=== PATIENT | male | born 1980 | race African-American/Black ===

== ENCOUNTER 2017-12-31 10:04 | Inpatient (IN) | payer OTHER ==
[2017-12-31 10:42] VITALS: BMI 25.3
--- NOTE | 2017-12-31 11:14 | HP ---
CIWA Score - CIWA Score Nausea/Vomitin-No Nausea/No Vomiting Muscle Tremors: None Anxiety: 1-Mildly Anxious Agitation: 0-Normal Activity Paroxysmal Sweats: No Perspiration Orientation: 0-Oriented Tacttile Disturbances: 0-None Auditory Disturbances: 0-None Visual Disturbances: 1-Very Mild Sensitivity Headache: 0-None Present CIWA-Ar Total Score: 2 Admission ROS BHS - HPI Allergies/Adverse Reactions: Allergies Allergy/AdvReac Type Severity Reaction Status Date / Time Penicillins Allergy Severe Difficulty Verified 12/31/17 14:04 Breathing History of Present Illness: pt here requesting detox from etoh use , reports 2 cases of beer/day x 10 years , reports irritability if not drinking , + tremors , reports starts drinking in the mornings , not today - dany 0.000 - latest use 4 am today . cannabis : occasional cocaine : occasional pcp : occasional denies opiate use tobacco : occasional pmhx : bronchitis , anemia pshx : denies psych : denies , requesting to see psychiatry - Ebola screening Have you traveled outside of the country in the last 21 days: No Have you had contact with anyone from an Ebola affected area: No Have you been sick,other than usual withdrawal symptoms: No Do you have a fever: No - Review of Systems Constitutional: No Symptoms Reported EENT: reports: No Symptoms Reported, Other (denies) Respiratory: reports: No Symptoms reported Cardiac: reports: No Symptoms Reported GI: reports: No Symptoms Reported : reports: No Symptoms Reported Musculoskeletal: reports: No Symptoms Reported Integumentary: reports: No Symptoms Reported Neuro: reports: No Symptoms reported Hematology: reports: Anemia Psychiatric: reports: No Sypmtoms Reported, Judgement Intact, Orientated x3, other (reports depression related to mother on hospice care) Other Systems: Reviewed and Negative Patient History - Smoking Cessation Smoking history: Current some day smoker Have you smoked in the past 12 months: Yes Aproximately how many cigarettes per day: 2 Hx Chewing Tobacco Use: No Initiated information on smoking cessation: No - Substances Abused Cocaine Route: Inhalation Frequency: Daily Amount used: $50 Age of first use: 37 Date of Last Use: 12/30/17 Alcohol-beer/vodka Route: Oral Frequency: Daily Amount used: 2-6 pks./1 pt. Age of first use: 22 Date of Last Use: 12/31/17 Marijuana Route: Smoking Frequency: Daily Amount used: $20 Age of first use: 16 Date of Last Use: 12/30/17 Family Disease History - Family Disease History Family Disease History: Other: Father (d. aids ), Mother (liver cirrhosis, liver ca age 62), Sister (2 sisters a & W), Son (1 son a & W), Daughter (twins A & W ) Admission Physical Exam [facility] - Vital Signs Vital Signs: Vital Signs - 24 hr 12/31/17 10:40 Pulse Rate 95 H Respiratory 18 Rate Blood Pressure 129/79 - Physical General Appearance: Yes: No Apparent Distress, Nourished, Disheveled, Other ( evasive) HEENTM: Yes: Within Normal Limits, EOMI, Hearing grossly Normal, Normal ENT Inspection, Normocephalic, Normal Voice, OMER, Pharynx Normal Respiratory: Yes: Within Normal Limits, Chest Non-Tender, Lungs Clear, Normal Breath Sounds, No Respiratory Distress, No Accessory Muscle Use Neck: Yes: Within Normal Limits, No masses,lesions,Nodules, Trachea in good position Cardiology: Yes: Within Normal Limits, Regular Rhythm, Regular Rate Abdominal: Yes: Within Normal Limits, Normal Bowel Sounds, Non Tender, Flat, Soft Genitourinary: Yes: Within Normal Limits Back: Yes: Within Normal Limits, Normal Inspection Musculoskeletal: Yes: Within Normal Limits, full range of Motion, Gait Steady, Pelvis Stable Extremities: Yes: Within Normal Limits, Normal Capillary Refill, Normal Inspection, Normal Range of Motion, Non-Tender 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: Yes: Within Normal Limits, Fully Oriented, Alert, Motor Strength 5 /5, Normal Mood/Affect, Normal Response Integumentary: Yes: Normal Color, Dry, Warm - Diagnostic (1) Alcohol dependence Current Visit: Yes Status: Chronic Qualifiers: Substance use status: alcohol-induced anxiety disorder Qualified Code(s): 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
[2017-12-31] MEDS ORDERED: guaiFENesin/D-METHORPHAN HB 10 ML UNIT-DOSE CUPS PO PRN (11:20)
[2017-12-31] MEDS ORDERED: P-EPHED 60MG/TRIPROLIDI 2.5MG TABLET PO PRN (11:20)
[2017-12-31] MEDS ORDERED: ACETAMINOPHEN 325 MG TABLET (FP) PO PRN (11:20)
[2017-12-31] MEDS ORDERED: MAGNESIUM HYDROX 2400MG/30ML ORAL SUSPENSION 30 ML CUP PO PRN (11:20)
[2017-12-31] MEDS ORDERED: MAG HYDROX/AL HYDROX/SIMETH 30 ML UNIT-DOSE CUP PO PRN (11:20)
[2017-12-31] MEDS ORDERED: MAGNESIUM CITRATE 300 ML BOTTLE PO PRN (11:20)
[2017-12-31] MEDS ORDERED: IBUPROFEN 400 MG TABLET (FP) PO PRN (11:20)
[2017-12-31] MEDS ORDERED: diazePAM 5 MG TABLET PO PRN (11:20)
[2017-12-31] MEDS ORDERED: MENTHOL/PHENOL 1 EACH UD MM PRN (11:20)
[2017-12-31 18:15] LABS: URINE APPEARANCE CLEAR; URINE BILIRUBIN NEGATIVE (<2.0 mg/dL); URINE COLOR YELLOW; URINE GLUCOSE (UA) 1+ (NEGATIVE); URINE KETONE 1+ (NEGATIVE); URINE LEUK ESTERASE NEGATIVE (NEGATIVE); URINE NITRITE NEGATIVE (NEGATIVE); URINE PROTEIN NEGATIVE (NEGATIVE); URINE UROBILINOGEN NEGATIVE mg/dL (0.2-1.0)
[2017-12-31] MEDS ORDERED: MELATONIN 5 MG TABLETS PO PRN (22:00)
[2017-12-31] MEDS: THIAMINE HCL 100 MG TABLET (FP) PO SCH (22:11)
[2017-12-31] MEDS: diazePAM 5 MG TABLET PO SCH (22:11)
[2018-01-01] MEDS: diazePAM 5 MG TABLET PO SCH ×3 (05:02→22:11)
[2018-01-01] MEDS: PRENATAL VITAMINS W/ FOLIC ACID TABLET (FP) PO SCH (10:06)
[2018-01-01 10:49] LABS: HEMATOCRIT 45.2 % (35.4-49); HEMOGLOBIN 15.3 GM/dL (11.7-16.9); MCH 32.1 pg (25.7-33.7); MCHC 33.8 g/dl (32.0-35.9); MEAN CELL VOLUME 95.1 fl (80-96); MEAN PLT VOLUME 7.9 fl (7.5-11.1); PLATELET COUNT 254 K/MM3 (134-434); RBC 4.76 M/mm3 (4.00-5.60); RDW 13.1 % (11.9-15.9); WHITE BLOOD COUNT 5.7 K/mm3 (4.0-10.0)
[2018-01-01 11:15] LABS: ALK PHOS 106 U/L (45-117); ANION GAP 8 MMOL/L (8-16); BILIRUBIN,TOTAL 0.4 mg/dL (0.2-1); BLOOD UREA NITROGEN 15 mg/dL (7-18); CALCIUM 8.5 mg/dL (8.5-10.1); CHLORIDE 107 mmol/L (98-107); CO2 25 mmol/L (21-32); CREATININE 0.8 mg/dL (0.55-1.3); GLUCOSE,RANDOM 102 mg/dL (74-106); POTASSIUM 4.5 mmol/L (3.5-5.1); SGOT/AST 15 U/L (15-37); SGPT/ALT 21 U/L (13-61); SODIUM 140 mmol/L (136-145)
--- NOTE | 2018-01-01 12:53 | PN ---
S CIWA - CIWA Score Nausea/Vomitin Muscle Tremors: 2 Anxiety: 2 Agitation: 2 Paroxysmal Sweats: 1-Minimal Palms Moist Orientation: 0-Oriented Tacttile Disturbances: 1-Very Mild Itch/Numbness Auditory Disturbances: 1-Very Mild Visual Disturbances: 1-Very Mild Sensitivity Headache: 2-Mild CIWA-Ar Total Score: 14 S Progress Note (SOAP) Subjective: alert,irritable,anxious,interrupted sleep,tremor Objective: 01/01/18 12:50 Vital Signs Temperature 97.6 F 01/01/18 09:58 Pulse Rate 84 01/01/18 09:58 Respiratory Rate 16 01/01/18 09:58 Blood Pressure 124/72 01/01/18 09:58 O2 Sat by Pulse Oximetry (%) ekg nsr qt/qtc 378/464 Laboratory Last Values WBC 5.7 K/mm3 (4.0-10.0) 01/01/18 08:00 RBC 4.76 M/mm3 (4.00-5.60) 01/01/18 08:00 Hgb 15.3 GM/dL (11.7-16.9) 01/01/18 08:00 Hct 45.2 % (35.4-49) 01/01/18 08:00 MCV 95.1 fl (80-96) 01/01/18 08:00 MCH 32.1 pg (25.7-33.7) 01/01/18 08:00 MCHC 33.8 g/dl (32.0-35.9) 01/01/18 08:00 RDW 13.1 % (11.9-15.9) 01/01/18 08:00 Plt Count 254 K/MM3 (134-434) 01/01/18 08:00 MPV 7.9 fl (7.5-11.1) 01/01/18 08:00 Sodium 140 mmol/L (136-145) 01/01/18 08:00 Potassium 4.5 mmol/L (3.5-5.1) 01/01/18 08:00 Chloride 107 mmol/L (98-107) 01/01/18 08:00 Carbon Dioxide 25 mmol/L (21-32) 01/01/18 08:00 Anion Gap 8 MMOL/L (8-16) 01/01/18 08:00 BUN 15 mg/dL (7-18) 01/01/18 08:00 Creatinine 0.8 mg/dL (0.55-1.3) 01/01/18 08:00 Creat Clearance w eGFR > 60 (>60) 01/01/18 08:00 Random Glucose 102 mg/dL (74-106) 01/01/18 08:00 Calcium 8.5 mg/dL (8.5-10.1) 01/01/18 08:00 Total Bilirubin 0.4 mg/dL (0.2-1) 01/01/18 08:00 AST 15 U/L (15-37) 01/01/18 08:00 ALT 21 U/L (13-61) 01/01/18 08:00 Alkaline Phosphatase 106 U/L (45-117) 01/01/18 08:00 Total Protein 6.0 g/dl (6.4-8.2) L 01/01/18 08:00 Albumin 3.0 g/dl (3.4-5.0) L 01/01/18 08:00 Urine Color Yellow 12/31/17 17:00 Urine Appearance Clear 12/31/17 17:00 Urine pH 5.0 (5.0-8.0) 12/31/17 17:00 Ur Specific [place] 1.026 (1.010-1.035) 12/31/17 17:00 Urine Protein Negative (NEGATIVE) 12/31/17 17:00 Urine Glucose (UA) 1+ (NEGATIVE) H 12/31/17 17:00 Urine Ketones 1+ (NEGATIVE) H 12/31/17 17:00 Urine Blood Negative (NEGATIVE) 12/31/17 17:00 Urine Nitrite Negative (NEGATIVE) 12/31/17 17:00 Urine Bilirubin Negative (<2.0 mg/dL) 12/31/17 17:00 Urine Urobilinogen Negative mg/dL (0.2-1.0) 12/31/17 17:00 Ur Leukocyte Esterase Negative (NEGATIVE) 12/31/17 17:00 RPR Titer Nonreactive (NONREACTIVE) 01/01/18 08:00 Assessment: 01/01/18 12:52 withdrawal symptom Plan: continue detox
--- NOTE | 2018-01-01 17:10 | CONSULT ---
[facility] Psychiatric Consult - Data Date of interview: 01/01/18 Admission source: [facility] Identifying data: First admission to [facility] for this 37 y/o [place] ( [facility]) male seeking detoxification treatment on for alcohol, cannabis and cocaine dependence.Patient is ( left seven months ago ),a father of two,domiciled,unemployed and supported on Welfare. Substance Abuse History: Discussed with the patient in this bedside interview. Mr Turner admits to daily use of alcohol,marihuana and cocaine as reported in this [facility] document : Smoking history: Current some day smoker. Have you smoked in the past 12 months: Yes. Aproximately how many cigarettes per day: 2. Hx Chewing Tobacco Use: No. Initiated information on smoking cessation: No. - Substances Abused. Cocaine. Route: Inhalation. Frequency: Daily. Amount used: $50. Age of first use: 37. Date of Last Use: 12/30/17. Alcohol-beer/ vodka. Route: Oral. Frequency: Daily. Amount used: 2-6 pks./1 pt. Age of first use: 22. Date of Last Use: 12/31/17. Marijuana. Route: Smoking. Frequency: Daily. Amount used: $20. Age of first use: 16. Date of Last Use: 12/30/17 Medical History: Anemia. Otherwise, the patient endorses good general health. Psychiatric History: Patient denies history of psychiatric hospitalizations or suicide attempts. No prior contact with psychiatrists. Physical/Sexual Abuse/Trauma History: Identified stressors : terminal illness of biological mother (committed to a local hospice), separation from , financial difficulties, no fixed domicile, chronic unemployment, lack of vocational skills, addictions (alcohol,cocaine,cannabis) and absence of a support network. Mr Turner appears to be in good spirits and coping fairly well. Additional Comment: Urine Drug Screen Results: THC-Marijuana, ETTA-Cocaine.Noted. Mental Status Exam - Mental Status Exam Alert and Oriented to: Time, Place, Person Cognitive Function: Good Patient Appearance: Well Groomed Mood: Hopeful, Euthymic Affect: Appropriate, Normal Range Patient Behavior: Fatigued, Cooperative Speech Pattern: Clear, Appropriate Voice Loudness: Normal Thought Process: Goal Oriented Thought Disorder: Not Present Hallucinations: Denies Suicidal Ideation: Denies Homicidal Ideation: Denies Insight/Judgement: Poor Sleep: Well (as per self-report) Appetite: Good Muscle strength/Tone: Normal Gait/Station: Normal Psychiatric Findings - Problem List ([place] 1, 2,3) (1) Alcohol dependence with uncomplicated withdrawal Current Visit: Yes Status: Acute (2) Cocaine dependence Current Visit: Yes Status: Acute (3) Cannabis dependence Current Visit: Yes Status: Acute - Initial Treatment Plan Initial Treatment Plan: Psychoeducation.Sleep hygiene revisited.Patient is encouraged to engage in groups + recreational activities on the unit.Empathy/ support. Observation.
[2018-01-01] MEDS: THIAMINE HCL 100 MG TABLET (FP) PO SCH (22:11)
[2018-01-02 09:26] VITALS: BP 123/84; PULSE 77; TEMP 96.6
[2018-01-02] MEDS: PRENATAL VITAMINS W/ FOLIC ACID TABLET (FP) PO SCH (09:44)
[2018-01-02] MEDS ORDERED: diazePAM 5 MG TABLET PO SCH (10:00)
--- NOTE | 2018-01-02 11:49 | PN ---
[facility] CIWA - CIWA Score Nausea/Vomitin-Mild Nausea/No Vomiting Muscle Tremors: 2 Anxiety: 3 Agitation: 2 Paroxysmal Sweats: 3 Orientation: 0-Oriented Tacttile Disturbances: 0-None Auditory Disturbances: 0-None Visual Disturbances: 0-None Headache: 1-Very Mild CIWA-Ar Total Score: 12 [facility] Progress Note (SOAP) Subjective: Sweating, interrupted sleep Objective: 01/02/18 11:47 Last Vital Signs Temp Pulse Resp BP Pulse Ox 96.6 F L 77 20 123/84 01/02/18 09:26 01/02/18 09:26 01/02/18 09:26 01/02/18 09:26 Laboratory Tests 12/31/17 01/01/18 01/01/18 17:00 08:00 08:00 WBC 5.7 RBC 4.76 Hgb 15.3 Hct 45.2 MCV 95.1 MCH 32.1 MCHC 33.8 RDW 13.1 Plt Count 254 MPV 7.9 Sodium 140 Potassium 4.5 Chloride 107 Carbon Dioxide 25 Anion Gap 8 BUN 15 Creatinine 0.8 Creat Clearance w eGFR > 60 Random Glucose 102 Calcium 8.5 Total Bilirubin 0.4 AST 15 ALT 21 Alkaline Phosphatase 106 Total Protein 6.0 L Albumin 3.0 L Urine Color Yellow Urine Appearance Clear Urine pH 5.0 Ur Specific [place] 1.026 Urine Protein Negative Urine Glucose (UA) 1+ H Urine Ketones 1+ H Urine Blood Negative Urine Nitrite Negative Urine Bilirubin Negative Urine Urobilinogen Negative Ur Leukocyte Esterase Negative RPR Titer 01/01/18 08:00 WBC RBC Hgb Hct MCV MCH MCHC RDW Plt Count MPV Sodium Potassium Chloride Carbon Dioxide Anion Gap BUN Creatinine Creat Clearance w eGFR Random Glucose Calcium Total Bilirubin AST ALT Alkaline Phosphatase Total Protein Albumin Urine Color Urine Appearance Urine pH Ur Specific [place] Urine Protein Urine Glucose (UA) Urine Ketones Urine Blood Urine Nitrite Urine Bilirubin Urine Urobilinogen Ur Leukocyte Esterase RPR Titer Nonreactive Labs reviewed: UA 1+ glucose Assessment: 01/02/18 11:48 Withdrawal sxs Noted with glycosuria Plan: Continue detox Glycosuria: encouraged PO water intake, repeat UA
--- NOTE | 2018-01-02 13:07 | DS ---
[facility] Detox Discharge Summary Admission Date: 12/31/17 Discharge Date: 01/02/18 - History Present History: Alcohol Dependence, Cannabis Dependence, Cocaine Dependence Additional Comments: Patient decided to leave AMA stating his mother is in the hospital dying and is on life support and that she was just taken off the machine. Patient instructed to proceed to ER stat if withdrawal symptoms and to see his PCP within 3 days. Pertinent Past History: Denies - Physical Exam Results Vital Signs: Vital Signs Temperature 96.6 F L 01/02/18 09:26 Pulse Rate 77 01/02/18 09:26 Respiratory Rate 20 01/02/18 09:26 Blood Pressure 123/84 01/02/18 09:26 O2 Sat by Pulse Oximetry (%) Pertinent Admission Physical Exam Findings: Withdrawal sxs Laboratory Tests 12/31/17 01/01/18 01/01/18 17:00 08:00 08:00 WBC 5.7 RBC 4.76 Hgb 15.3 Hct 45.2 MCV 95.1 MCH 32.1 MCHC 33.8 RDW 13.1 Plt Count 254 MPV 7.9 Sodium 140 Potassium 4.5 Chloride 107 Carbon Dioxide 25 Anion Gap 8 BUN 15 Creatinine 0.8 Creat Clearance w eGFR > 60 Random Glucose 102 Calcium 8.5 Total Bilirubin 0.4 AST 15 ALT 21 Alkaline Phosphatase 106 Total Protein 6.0 L Albumin 3.0 L Urine Color Yellow Urine Appearance Clear Urine pH 5.0 Ur Specific [place] 1.026 Urine Protein Negative Urine Glucose (UA) 1+ H Urine Ketones 1+ H Urine Blood Negative Urine Nitrite Negative Urine Bilirubin Negative Urine Urobilinogen Negative Ur Leukocyte Esterase Negative RPR Titer 01/01/18 08:00 WBC RBC Hgb Hct MCV MCH MCHC RDW Plt Count MPV Sodium Potassium Chloride Carbon Dioxide Anion Gap BUN Creatinine Creat Clearance w eGFR Random Glucose Calcium Total Bilirubin AST ALT Alkaline Phosphatase Total Protein Albumin Urine Color Urine Appearance Urine pH Ur Specific [place] Urine Protein Urine Glucose (UA) Urine Ketones Urine Blood Urine Nitrite Urine Bilirubin Urine Urobilinogen Ur Leukocyte Esterase RPR Titer Nonreactive Labs reviewed: UA shows 1+ glucose (encouraged PO water intake and to repeat UA) - Medication Discharge Medications: Ambulatory Orders NK [No Known Home Medication] 12/31/17 - Diagnosis (1) Glycosuria with normal serum glucose Current Visit: Yes Status: Acute (2) Nicotine dependence Current Visit: Yes Status: Chronic (3) Alcohol dependence with uncomplicated withdrawal Current Visit: Yes Status: Acute (4) Cannabis dependence Current Visit: Yes Status: Chronic (5) Cocaine dependence Current Visit: Yes Status: Chronic - AMA Did Patient Leave Against Medical Advice: Yes (Proceed to ER stat if withdrawal sxs, F/U with PCP within 3 days)
[2018-01-04] MEDS ORDERED: diazePAM 5 MG TABLET PO SCH (10:00)
--- NOTE | 2018-01-04 13:18 | EKG ---
Test Reason : Blood Pressure : / mmHG Vent. Rate : 091 BPM Atrial Rate : 091 BPM P-R Int : 140 ms QRS Dur : 076 ms QT Int : 378 ms P-R-T Axes : 066 043 074 degrees QTc Int : 464 ms NORMAL SINUS RHYTHM NORMAL ECG NO PREVIOUS ECGS AVAILABLE Confirmed by MD STEPHANIE, ALVINA ([id number]) on 01/04/2018 1:18:12 PM Referred By: Confirmed By:ALVINA BROWN MD
== END 2018-01-02 13:25 | disposition left against medical advice (07) | DRG 770 ==
LOC: YASAS 10:04 → Y3N 14:44
PROC: HZ2ZZZZ Detoxification Services for Substance Abuse Treatment (ICD-10-PCS; principal; 2017-12-31)
DX: F10.230 Alcohol dependence with withdrawal, uncomplicated (principal); F14.20 Cocaine dependence, uncomplicated; F12.20 Cannabis dependence, uncomplicated; F17.210 Nicotine dependence, cigarettes, uncomplicated; R81 Glycosuria; Z86.2 Personal history of diseases of the blood and blood-forming organs and certain disorders involving the immune mechanism; Z88.0 Allergy status to penicillin
CPT/HCPCS: 36415; 80053; 81003; 85027; 86593; 93005; 93010

== ENCOUNTER 2018-04-02 08:26 | Inpatient (IN) | payer OTHER ==
[2018-04-02 09:03] VITALS: BMI 27.3
--- NOTE | 2018-04-02 09:32 | HP ---
CIWA Score Nausea/Vomitin Muscle Tremors: 4-Moderate,w/Arms Extend Anxiety: 4-Mod. Anxious/Guarded Agitation: 0-Normal Activity Paroxysmal Sweats: No Perspiration Orientation: 1-Uncertain about Date Tacttile Disturbances: 0-None Auditory Disturbances: 0-None Visual Disturbances: 0-None Headache: 2-Mild CIWA-Ar Total Score: 13 - Admission Criteria [facility] Guidelines: Admission for Medically Managed Detox: Requires at least one of the followin. CIWA greater than 12 2. Seizures within the past 24 hours 3. Delirium tremens within the past 24 hours 4. Hallucinations within the past 24 hours 5. Acute intervention needed for co occurring medical disorder 6. Acute intervention needed for co occurring psychiatric disorder 7. Severe withdrawal that cannot be handled at a lower level of care (continued vomiting, continued diarrhea, abnormal vital signs) requiring intravenous medication and/or fluids 8. Patient presents the following: CIWA greater than 12 Admission Criteria Met: Admission criteria met Admission ROS S - HPI Chief Complaint: It's ruining my life, I have to stop drinking. Allergies/Adverse Reactions: Allergies Allergy/AdvReac Type Severity Reaction Status Date / Time Penicillins Allergy Severe Difficulty Verified 04/02/18 09:59 Breathing shellfish derived Allergy Severe Difficulty Verified 04/02/18 09:59 Breathing History of Present Illness: 37 yo gentleman here for detox from alcohol - also using crack. Denies seizures but does have black outs. Drinks first thing in morning. Last here in December 31, 2017 but left after two days due to in family. Encouraged patient to complete detox and follow up with rehab. Exam Limitations: Clinical Condition - Ebola screening Have you traveled outside of the country in the last 21 days: No (N) Have you had contact with anyone from an Ebola affected area: No Have you been sick,other than usual withdrawal symptoms: No Do you have a fever: No - Review of Systems Constitutional: Loss of Appetite, Malaise, Changes in sleep EENT: reports: No Symptoms Reported Respiratory: reports: No Symptoms reported Cardiac: reports: No Symptoms Reported GI: reports: Nausea, Poor Appetite, Poor Fluid Intake, Indigestion, Abdominal cramping : reports: Frequency Musculoskeletal: reports: No Symptoms Reported Integumentary: reports: Dryness Neuro: reports: Headache, Tremors Endocrine: reports: No Symptoms Reported Hematology: reports: No Symptoms Reported Psychiatric: reports: Judgement Intact, Mood/Affect Appropiate, Anxious Other Systems: Reviewed and Negative Patient History - Patient Medical History Hx Asthma: Yes Hx Chronic Obstructive Pulmonary Disease (COPD): No Hx Cancer: No Hx Cardiac Disorders: No Hx Congestive Heart Failure: No Hx Hypertension: No Hx Hypercholesterolemia: No Hx Pacemaker: No HX Cerebrovascular Accident: No Hx Seizures: No Hx Diabetes: No Hx Gastrointestinal Disorders: No Hx Liver Disease: No Hx Genitourinary Disorders: No Hx Sexually Transmitted Disorders: No Hx Renal Disease (ESRD): No Hx Thyroid Disease: No Hx Human Immunodeficiency Virus (HIV): No Hx Hepatitis C: No Hx Depression: No Hx Suicide Attempt: No Hx Schizophrenia: No - Patient Surgical History Past Surgical History: No Hx Neurologic Surgery: No Hx Cataract Extraction: No Hx Cardiac Surgery: No Hx Lung Surgery: No Hx Breast Surgery: No Hx Breast Biopsy: No Hx Abdominal Surgery: No Hx Appendectomy: No Hx Cholecystectomy: No Hx Genitourinary Surgery: No Hx Section: No Hx Orthopedic Surgery: No Anesthesia Reaction: No - PPD History Previous Implant?: Yes Documented Results: Negative w/o proof Implanted On Prior R Admission?: Yes Date: 01/02/18 (never read) PPD to be Administered?: Yes - Reproductive History Patient is a Female of Child Bearing Age (11 -55 yrs old): No (male) - Smoking Cessation Smoking history: Current every day smoker Have you smoked in the past 12 months: Yes Aproximately how many cigarettes per day: 10 Hx Chewing Tobacco Use: No Initiated information on smoking cessation: Yes 'Breaking Loose' booklet given: 04/02/18 (give on floor) - Substance & Tx. History Hx Alcohol Use: Yes Hx Substance Use: Yes Substance Use Type: Alcohol, Cocaine, Marijuana Hx Substance Use Treatment: Yes (detox, rehab) - Substances Abused alcohol Route: Oral Frequency: Daily Amount used: 10 cans sixteen oz beer; Age of first use: 17 Date of Last Use: 04/01/18 cocaine Route: Inhalation Frequency: 1-2 times per week Amount used: $60 Age of first use: 22 Date of Last Use: 04/01/18 marijuana Route: Smoking Frequency: 1-2 times per week Amount used: $10 Age of first use: 22 Date of Last Use: 01/10/19 Family Disease History - Family Disease History Family Disease History: Other: Father (d. aids never met him), Mother ( , etoh, cirrhosis, liver cancer), Sister (2 sisters a & W), Son (1 son age 14 healthy), Daughter (twins age 10 , healthy) Admission Physical Exam [facility] - Vital Signs Vital Signs: Vital Signs - 24 hr 04/02/18 09:00 Temperature 97.5 F L Pulse Rate 88 Respiratory 20 Rate Blood Pressure 125/78 - Physical General Appearance: Yes: Nourished, Appropriately Dressed, Moderate Distress, Tremorous, Anxious HEENTM: Yes: EOMI, Hearing grossly Normal, Normocephalic, Normal Voice, Pharynx Normal Respiratory: Yes: Normal Breath Sounds, No Respiratory Distress Neck: Yes: No masses,lesions,Nodules, Supple Breast: Yes: Breast Exam Deferred Cardiology: Yes: Regular Rhythm, Regular Rate Abdominal: Yes: Flat Genitourinary: Yes: Frequency Back: Yes: Normal Inspection Musculoskeletal: Yes: full range of Motion, Gait Steady Extremities: Yes: Normal Inspection, Normal Range of Motion, Non-Tender 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: Yes: Alert, Motor Strength 5/5, Normal Mood/Affect, Normal Response Integumentary: Yes: Normal Color, Dry, Warm Lymphatic: Yes: Within Normal Limits - Diagnostic (1) Alcohol dependence with uncomplicated withdrawal Current Visit: Yes Status: Chronic (2) Cannabis dependence Current Visit: Yes Status: Chronic (3) Cocaine dependence Current Visit: Yes Status: Chronic Qualifiers: Substance use status: uncomplicated Qualified Code(s): F14.20 - Cocaine dependence, uncomplicated (4) Nicotine dependence Current Visit: Yes Status: Chronic Qualifiers: Nicotine product type: cigarettes Substance use status: uncomplicated Qualified Code(s): F17.210 - Nicotine dependence, cigarettes, uncomplicated (5) Asthma Current Visit: Yes Status: Acute Qualifiers: Asthma severity: mild Asthma persistence: intermittent Cleared for Admission S - Detox or Rehab [facility] Level of Care: Medically Managed Detox Regimen/Protocol: Librium S Breath Alcohol Content Breath Alcohol Content: 0 Urine Drug Screen - Results Drug Screen Negative: No Urine Drug Screen Results: THC-Marijuana, ETTA-Cocaine
--- NOTE | 2018-04-02 09:45 | HP ---
CIWA Score Nausea/Vomitin Muscle Tremors: 4-Moderate,w/Arms Extend Anxiety: 4-Mod. Anxious/Guarded Agitation: 0-Normal Activity Paroxysmal Sweats: No Perspiration Orientation: 1-Uncertain about Date Tacttile Disturbances: 0-None Auditory Disturbances: 0-None Visual Disturbances: 0-None Headache: 2-Mild CIWA-Ar Total Score: 13 - Admission Criteria OASAS Guidelines: Admission for Medically Managed Detox: Requires at least one of the followin. CIWA greater than 12 2. Seizures within the past 24 hours 3. Delirium tremens within the past 24 hours 4. Hallucinations within the past 24 hours 5. Acute intervention needed for co occurring medical disorder 6. Acute intervention needed for co occurring psychiatric disorder 7. Severe withdrawal that cannot be handled at a lower level of care (continued vomiting, continued diarrhea, abnormal vital signs) requiring intravenous medication and/or fluids 8. Patient presents the following: CIWA greater than 12 Admission Criteria Met: Admission criteria met Admission ROS BHS - HPI Chief Complaint: I'm ruining my life, I have to stop with the drinking and drugs. Allergies/Adverse Reactions: Allergies Allergy/AdvReac Type Severity Reaction Status Date / Time Penicillins Allergy Severe Difficulty Verified 12/31/17 14:04 Breathing History of Present Illness: 37 yo Exam Limitations: No Limitations - Ebola screening Have you traveled outside of the country in the last 21 days: No (N) Have you had contact with anyone from an Ebola affected area: No Have you been sick,other than usual withdrawal symptoms: No Do you have a fever: No Patient History - Patient Medical History Hx Asthma: Yes Hx Chronic Obstructive Pulmonary Disease (COPD): No Hx Cancer: No Hx Cardiac Disorders: No Hx Congestive Heart Failure: No Hx Hypertension: No Hx Hypercholesterolemia: No Hx Pacemaker: No HX Cerebrovascular Accident: No Hx Seizures: No Hx Diabetes: No Hx Gastrointestinal Disorders: No Hx Liver Disease: No Hx Genitourinary Disorders: No Hx Sexually Transmitted Disorders: No Hx Renal Disease (ESRD): No Hx Thyroid Disease: No Hx Human Immunodeficiency Virus (HIV): No Hx Hepatitis C: No Hx Depression: No Hx Suicide Attempt: No Hx Schizophrenia: No - Patient Surgical History Past Surgical History: No Hx Neurologic Surgery: No Hx Cataract Extraction: No Hx Cardiac Surgery: No Hx Lung Surgery: No Hx Breast Surgery: No Hx Breast Biopsy: No Hx Abdominal Surgery: No Hx Appendectomy: No Hx Cholecystectomy: No Hx Genitourinary Surgery: No Hx Section: No Hx Orthopedic Surgery: No Anesthesia Reaction: No - PPD History Previous Implant?: Yes Documented Results: Negative w/o proof Implanted On Prior [facility] Admission?: Yes Date: 01/02/18 (never read) - Smoking Cessation Smoking history: Current every day smoker Have you smoked in the past 12 months: Yes Aproximately how many cigarettes per day: 10 Hx Chewing Tobacco Use: No Initiated information on smoking cessation: Yes - Substances Abused alcohol Route: Oral Frequency: Daily Amount used: 10 cans sixteen oz beer; Age of first use: 17 Date of Last Use: 04/01/18 cocaine Route: Inhalation Frequency: 1-2 times per week Amount used: $60 Age of first use: 22 Date of Last Use: 04/01/18 marijuana Route: Smoking Frequency: 1-2 times per week Amount used: $10 Age of first use: 22 Date of Last Use: 03/31/18 Family Disease History - Family Disease History Family Disease History: Other: Father (d. aids never met him), Mother ( , etoh, cirrhosis, liver cancer), Sister (2 sisters a & W), Son (1 son age 14 healthy), Daughter (twins age 10 , healthy) Admission Physical Exam BHS - Vital Signs Vital Signs: Vital Signs - 24 hr 04/02/18 09:00 Temperature 97.5 F L Pulse Rate 88 Respiratory 20 Rate Blood Pressure 125/78 BHS Breath Alcohol Content Breath Alcohol Content: 0 Urine Drug Screen - Results Drug Screen Negative: No Urine Drug Screen Results: THC-Marijuana, ETTA-Cocaine
[2018-04-02] MEDS ORDERED: ACETAMINOPHEN 325 MG TABLET (FP) PO PRN (09:47)
[2018-04-02] MEDS ORDERED: P-EPHED 60MG/TRIPROLIDI 2.5MG TABLET PO PRN (09:47)
[2018-04-02] MEDS ORDERED: LOPERAMIDE HCL 2 MG CAPSULE PO PRN (09:47)
[2018-04-02] MEDS ORDERED: MAGNESIUM CITRATE 300 ML BOTTLE PO PRN (09:47)
[2018-04-02] MEDS ORDERED: guaiFENesin/D-METHORPHAN HB 10 ML UNIT-DOSE CUPS PO PRN (09:47)
[2018-04-02] MEDS ORDERED: MAGNESIUM HYDROX 2400MG/30ML ORAL SUSPENSION 30 ML CUP PO PRN (09:47)
[2018-04-02] MEDS ORDERED: chlordiazePOXIDE HCL 25 MG CAPSULE PO PRN (09:47)
[2018-04-02] MEDS ORDERED: NICOTINE POLACRILEX 4 MG GUM BUC PRN (09:47)
[2018-04-02] MEDS ORDERED: MAG HYDROX/AL HYDROX/SIMETH 30 ML UNIT-DOSE CUP PO PRN (09:47)
[2018-04-02] MEDS ORDERED: MENTHOL/PHENOL 1 EACH UD MM PRN (09:47)
[2018-04-02] MEDS ORDERED: IBUPROFEN 400 MG TABLET (FP) PO PRN (09:47)
[2018-04-02] MEDS ORDERED: ALBUTEROL SO4 8 GM HFA INHALER IH PRN (09:49)
[2018-04-02] MEDS: PRENATAL VITAMINS W/ FOLIC ACID TABLET (FP) PO SCH (12:15)
[2018-04-02] MEDS: chlordiazePOXIDE HCL 25 MG CAPSULE PO SCH ×3 (12:16→22:33)
[2018-04-02] MEDS: THIAMINE HCL 100 MG TABLET (FP) PO SCH (22:33)
[2018-04-02] MEDS: MELATONIN 5 MG TABLETS PO PRN (22:34)
[2018-04-03] MEDS: chlordiazePOXIDE HCL 25 MG CAPSULE PO SCH ×4 (05:44→22:59)
[2018-04-03] MEDS: PRENATAL VITAMINS W/ FOLIC ACID TABLET (FP) PO SCH (10:32)
--- NOTE | 2018-04-03 10:55 | PN ---
S CIWA - CIWA Score Nausea/Vomitin-Mild Nausea/No Vomiting Muscle Tremors: 3 Anxiety: 1-Mildly Anxious Agitation: 3 Paroxysmal Sweats: 1-Minimal Palms Moist Orientation: 1-Uncertain about Date Tacttile Disturbances: 0-None Auditory Disturbances: 0-None Visual Disturbances: 0-None Headache: 2-Mild CIWA-Ar Total Score: 12 BHS Progress Note (SOAP) Subjective: headaches tremor sweating restlessness Objective: 04/03/18 10:55 Vital Signs Temperature 97.7 F 04/03/18 09:52 Pulse Rate 91 H 04/03/18 09:52 Respiratory Rate 18 04/03/18 09:52 Blood Pressure 137/67 04/03/18 09:52 O2 Sat by Pulse Oximetry (%) 04/03/18 10:56 lab pending Assessment: 04/03/18 10:56 withdrawal sx Plan: continue detox
[2018-04-03 10:56] LABS: HEMATOCRIT 49.6 % (35.4-49); MCH 30.3 pg (25.7-33.7); MCHC 32.3 g/dl (32.0-35.9); MEAN CELL VOLUME 93.9 fl (80-96); MEAN PLT VOLUME 8.1 fl (7.5-11.1); PLATELET COUNT 305 K/MM3 (134-434); RBC 5.28 M/mm3 (4.00-5.60)
[2018-04-03 11:03] LABS: ALBUMIN 3.8 g/dl (3.4-5.0); ALK PHOS 98 U/L (45-117); ANION GAP 5 MMOL/L (8-16); BILIRUBIN,TOTAL 0.4 mg/dL (0.2-1); BLOOD UREA NITROGEN 14 mg/dL (7-18); CALCIUM 9.1 mg/dL (8.5-10.1); CHLORIDE 103 mmol/L (98-107); CO2 31 mmol/L (21-32); CREATININE 1.2 mg/dL (0.55-1.3); GLUCOSE,RANDOM 112 mg/dL (74-106); POTASSIUM 4.1 mmol/L (3.5-5.1); SGOT/AST 18 U/L (15-37); SGPT/ALT 38 U/L (13-61); SODIUM 138 mmol/L (136-145); TOT PROT 7.1 g/dl (6.4-8.2)
[2018-04-03] MEDS: MELATONIN 5 MG TABLETS PO PRN (22:58)
[2018-04-03] MEDS: THIAMINE HCL 100 MG TABLET (FP) PO SCH (22:59)
[2018-04-04] MEDS: chlordiazePOXIDE HCL 25 MG CAPSULE PO SCH (06:07)
[2018-04-04] MEDS: chlordiazePOXIDE 5 MG CAPSULE PO SCH ×3 (10:16→22:25)
[2018-04-04] MEDS: PRENATAL VITAMINS W/ FOLIC ACID TABLET (FP) PO SCH (10:16)
--- NOTE | 2018-04-04 10:41 | PN ---
S CIWA - CIWA Score Nausea/Vomitin-No Nausea/No Vomiting Muscle Tremors: 3 Anxiety: 3 Agitation: 3 Paroxysmal Sweats: 1-Minimal Palms Moist Orientation: 0-Oriented Tacttile Disturbances: 0-None Auditory Disturbances: 0-None Visual Disturbances: 0-None Headache: 0-None Present CIWA-Ar Total Score: 10 BHS Progress Note (SOAP) Subjective: agitation anxiety sweats interrupted sleep Objective: 04/04/18 10:40 Vital Signs Temperature 97.3 F L 04/04/18 09:30 Pulse Rate 86 04/04/18 09:30 Respiratory Rate 18 04/04/18 09:30 Blood Pressure 132/82 04/04/18 09:30 O2 Sat by Pulse Oximetry (%) Laboratory Tests 04/03/18 04/03/18 04/03/18 06:00 06:00 06:00 WBC 6.0 RBC 5.28 Hgb 16.0 Hct 49.6 H MCV 93.9 MCH 30.3 MCHC 32.3 RDW 13.0 Plt Count 305 D MPV 8.1 Sodium 138 Potassium 4.1 Chloride 103 Carbon Dioxide 31 Anion Gap 5 L BUN 14 Creatinine 1.2 Creat Clearance w eGFR > 60 Random Glucose 112 H Calcium 9.1 Total Bilirubin 0.4 AST 18 ALT 38 Alkaline Phosphatase 98 Total Protein 7.1 Albumin 3.8 RPR Titer HIV 1&2 Antibody Screen Negative HIV P24 Antigen Negative 04/03/18 06:00 WBC RBC Hgb Hct MCV MCH MCHC RDW Plt Count MPV Sodium Potassium Chloride Carbon Dioxide Anion Gap BUN Creatinine Creat Clearance w eGFR Random Glucose Calcium Total Bilirubin AST ALT Alkaline Phosphatase Total Protein Albumin RPR Titer Nonreactive HIV 1&2 Antibody Screen HIV P24 Antigen aaox3 ambulating no acute distress Assessment: 04/04/18 10:40 withdrawal sx Plan: continue detox increase fluids
[2018-04-04] MEDS: THIAMINE HCL 100 MG TABLET (FP) PO SCH (22:25)
[2018-04-04] MEDS: MELATONIN 5 MG TABLETS PO PRN (22:25)
[2018-04-05] MEDS: chlordiazePOXIDE 5 MG CAPSULE PO SCH (05:44)
[2018-04-05] MEDS: chlordiazePOXIDE HCL 10 MG CAPSULE PO SCH ×3 (10:44→22:03)
[2018-04-05] MEDS: PRENATAL VITAMINS W/ FOLIC ACID TABLET (FP) PO SCH (10:44)
--- NOTE | 2018-04-05 12:30 | PN ---
BHS Progress Note (SOAP) Subjective: sweats anxiety Objective: 04/05/18 12:29 Vital Signs Temperature 97.7 F 04/05/18 09:24 Pulse Rate 89 04/05/18 09:24 Respiratory Rate 18 04/05/18 09:24 Blood Pressure 129/65 04/05/18 09:24 O2 Sat by Pulse Oximetry (%) aaox3 ambulating no acute distress Assessment: 04/05/18 12:29 withdrawal sx Plan: increase fluids continue detox d/c in am
[2018-04-05 21:16] VITALS: TEMP 97.7
[2018-04-05] MEDS: THIAMINE HCL 100 MG TABLET (FP) PO SCH (22:03)
[2018-04-05] MEDS: MELATONIN 5 MG TABLETS PO PRN (22:03)
[2018-04-06] MEDS: chlordiazePOXIDE HCL 10 MG CAPSULE PO SCH (05:58)
[2018-04-06 07:34] VITALS: BP 110/66; PULSE 82
--- NOTE | 2018-04-06 08:36 | DS ---
[facility] Detox Discharge Summary Admission Date: 04/02/18 Discharge Date: 04/06/18 - History Present History: Alcohol Dependence, Cannabis Dependence, Cocaine Dependence - Physical Exam Results Vital Signs: Vital Signs Temperature 97.7 F 04/06/18 07:33 Pulse Rate 82 04/06/18 07:33 Respiratory Rate 18 04/06/18 07:33 Blood Pressure 110/66 04/06/18 07:33 O2 Sat by Pulse Oximetry (%) - Treatment Hospital Course: Detox Protocol Followed, Detoxed Safely, Responded well, Discharged Condition Good, Rehab Referral Accepted - Medication Discharge Medications: Ambulatory Orders Albuterol Sulfate Inhaler - [Ventolin Hfa Inhaler -] 2 inh PO Q4H PRN 04/02/18 - Diagnosis (1) Asthma Current Visit: Yes Status: Chronic Qualifiers: Asthma severity: mild Asthma persistence: intermittent (2) Alcohol dependence with uncomplicated withdrawal Current Visit: Yes Status: Chronic (3) Cannabis dependence Current Visit: Yes Status: Chronic (4) Cocaine dependence Current Visit: Yes Status: Chronic Qualifiers: Substance use status: uncomplicated Qualified Code(s): F14.20 - Cocaine dependence, uncomplicated (5) Nicotine dependence Current Visit: Yes Status: Chronic Qualifiers: Nicotine product type: cigarettes Substance use status: uncomplicated Qualified Code(s): F17.210 - Nicotine dependence, cigarettes, uncomplicated (6) Glycosuria with normal serum glucose Current Visit: No Status: Acute - AMA Did Patient Leave Against Medical Advice: No (going home)
== END 2018-04-06 08:55 | disposition home or self-care (01) | DRG 774 ==
LOC: YASAS 08:26 → Y6N 10:17
PROC: HZ2ZZZZ Detoxification Services for Substance Abuse Treatment (ICD-10-PCS; principal; 2018-04-02)
DX: F10.230 Alcohol dependence with withdrawal, uncomplicated (principal); F14.20 Cocaine dependence, uncomplicated; F12.20 Cannabis dependence, uncomplicated; F17.210 Nicotine dependence, cigarettes, uncomplicated; J45.20 Mild intermittent asthma, uncomplicated; R81 Glycosuria; Z88.0 Allergy status to penicillin; Z91.013 Allergy to seafood
CPT/HCPCS: 36415; 80053; 85027; 86593; 87389

== ENCOUNTER 2018-05-18 10:14 | Inpatient (IN) | payer OTHER ==
[2018-05-18 10:54] VITALS: BMI 26.3
--- NOTE | 2018-05-18 11:34 | HP ---
CIWA Score Nausea/Vomitin Muscle Tremors: 2 Anxiety: 2 Agitation: 2 Paroxysmal Sweats: 1-Minimal Palms Moist Orientation: 0-Oriented Tacttile Disturbances: 1-Very Mild Itch/Numbness Auditory Disturbances: 1-Very Mild Visual Disturbances: 0-None Headache: 2-Mild CIWA-Ar Total Score: 13 - Admission Criteria OASAS Guidelines: Admission for Medically Managed Detox: Requires at least one of the followin. CIWA greater than 12 2. Seizures within the past 24 hours 3. Delirium tremens within the past 24 hours 4. Hallucinations within the past 24 hours 5. Acute intervention needed for co occurring medical disorder 6. Acute intervention needed for co occurring psychiatric disorder 7. Severe withdrawal that cannot be handled at a lower level of care (continued vomiting, continued diarrhea, abnormal vital signs) requiring intravenous medication and/or fluids 8. Patient presents the following: CIWA greater than 12 Admission Criteria Met: Admission criteria met Admission ROS BHS - HPI Chief Complaint: i need help to stop drinking alcohol,cocaine and marijuana Allergies/Adverse Reactions: Allergies Allergy/AdvReac Type Severity Reaction Status Date / Time Penicillins Allergy Severe Difficulty Verified 05/18/18 11:11 Breathing shellfish derived Allergy Severe Difficulty Verified 05/18/18 11:11 Breathing History of Present Illness: this 37 years old male with alcohol,cocaine and marijuana dependence,seeking detox,withdrawal symptom, multiple admissions in detox but keep relapsing ambulation with cane,seen in [place] 3 days ago,had xray done,was told to be arthritis of right knee,ambulation with cane nicotine dependence 10 cigarette/day, weight loss longest sobriety 3 years plan to go to rehab after detox Exam Limitations: No Limitations - Ebola screening Have you traveled outside of the country in the last 21 days: No Have you had contact with anyone from an Ebola affected area: No Have you been sick,other than usual withdrawal symptoms: No - Review of Systems Constitutional: Loss of Appetite, Malaise, Night Sweats, Changes in sleep, Weakness, Unintentional Wgt. Loss EENT: reports: Nose Congestion Respiratory: reports: No Symptoms reported Cardiac: reports: No Symptoms Reported GI: reports: Nausea, Indigestion, Abdominal cramping : reports: No Symptoms Reported Musculoskeletal: reports: Back Pain, Joint Pain, Muscle Pain, Other (pain in right knee,arthritis,ambulation with cane) Integumentary: reports: Dryness Neuro: reports: Headache, Tremors Endocrine: reports: No Symptoms Reported Hematology: reports: No Symptoms Reported Psychiatric: reports: No Sypmtoms Reported, Judgement Intact, Mood/Affect Appropiate, Orientated x3 Other Systems: Reviewed and Negative Patient History - Patient Medical History Hx Anemia: No Hx Asthma: Yes (on albuterol inhaler) Hx Chronic Obstructive Pulmonary Disease (COPD): No Hx Cancer: No Hx Cardiac Disorders: No Hx Congestive Heart Failure: No Hx Hypertension: No Hx Hypercholesterolemia: No Hx Pacemaker: No HX Cerebrovascular Accident: No Hx Seizures: No Hx Diabetes: No Hx Gastrointestinal Disorders: No Hx Liver Disease: No Hx Genitourinary Disorders: No Hx Sexually Transmitted Disorders: No Hx Renal Disease (ESRD): No Hx Thyroid Disease: No Hx Human Immunodeficiency Virus (HIV): No (last 02/06 negative) Hx Hepatitis C: No Hx Depression: No Hx Suicide Attempt: No Hx Schizophrenia: No Other Medical History: no suicidal,no suicidal,cane ambulation for arthritis of right knee - Patient Surgical History Past Surgical History: No Hx Neurologic Surgery: No Hx Cataract Extraction: No Hx Cardiac Surgery: No Hx Lung Surgery: No Hx Breast Surgery: No Hx Breast Biopsy: No Hx Abdominal Surgery: No Hx Appendectomy: No Hx Cholecystectomy: No Hx Genitourinary Surgery: No Hx Section: No Hx Orthopedic Surgery: No Anesthesia Reaction: No - PPD History Previous Implant?: Yes Documented Results: Negative w/proof Implanted On Prior [facility] Admission?: Yes Date: 04/04/18 Results: 0 mm PPD to be Administered?: No - Smoking Cessation Smoking history: Current every day smoker Have you smoked in the past 12 months: Yes Aproximately how many cigarettes per day: 10 Hx Chewing Tobacco Use: No Initiated information on smoking cessation: Yes 'Breaking Loose' booklet given: 05/18/18 - Substance & Tx. History Hx Alcohol Use: Yes Hx Substance Use: Yes Substance Use Type: Alcohol, Cocaine, Marijuana Hx Substance Use Treatment: Yes ([facility] 04/02/18 to 04/06/18) - Substances Abused Cocaine Route: Inhalation Frequency: 3-6 times per week Amount used: $50 Age of first use: 21 Date of Last Use: 05/17/18 Alcohol-beer Route: Oral Frequency: Daily Amount used: 3-6 pks. Age of first use: 17 Date of Last Use: 05/18/18 Marijuana Route: Smoking Frequency: 1-2 times per week Amount used: $10 Age of first use: 21 Date of Last Use: 05/17/18 Family Disease History - Family Disease History Family Disease History: Other: Father (d. aids never met him), Mother ( , etoh, cirrhosis, liver cancer), Sister (2 sisters a & W), Son (1 son age 14 healthy), Daughter (twins age 10 , healthy) Admission Physical Exam [facility] - Vital Signs Vital Signs: Vital Signs - 24 hr 05/18/18 10:48 Temperature 96.6 F L Pulse Rate 90 Respiratory 18 Rate Blood Pressure 141/84 - Physical General Appearance: Yes: Moderate Distress, Tremorous, Irritable, Sweating, Anxious HEENTM: Yes: Normal ENT Inspection, OMER, Pharynx Normal Respiratory: Yes: Within Normal Limits, Lungs Clear, Normal Breath Sounds Neck: Yes: Within Normal Limits, Supple, Trachea in good position Breast: Yes: Within Normal Limits Cardiology: Yes: Within Normal Limits, Regular Rhythm, Regular Rate, S1, S2 Abdominal: Yes: Within Normal Limits, Normal Bowel Sounds, Non Tender, Flat, Soft Genitourinary: Yes: Within Normal Limits Back: Yes: Normal Inspection, Muscle Spasm Musculoskeletal: Yes: full range of Motion, Back pain, Muscle Pain, Other (pain in the right knee no trauma ambuation with cane seen at [place] 3 days ago,had x ray done) Extremities: Yes: Within Normal Limits, Normal Range of Motion, Tremors 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: 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: 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 intact, Fully Oriented, Alert, Motor Strength 5/5 Integumentary: Yes: Dry Lymphatic: Yes: Within Normal Limits - Diagnostic (1) Alcohol dependence with uncomplicated withdrawal Current Visit: No Status: Chronic (2) Asthma Current Visit: No Status: Chronic Qualifiers: Asthma severity: mild Asthma persistence: intermittent (3) Cannabis dependence Current Visit: No Status: Chronic (4) Cocaine dependence Current Visit: No Status: Chronic Qualifiers: Substance use status: uncomplicated Qualified Code(s): F14.20 - Cocaine dependence, uncomplicated (5) Nicotine dependence Current Visit: No Status: Chronic Qualifiers: Nicotine product type: cigarettes Substance use status: uncomplicated Qualified Code(s): F17.210 - Nicotine dependence, cigarettes, uncomplicated (6) Weight loss Current Visit: Yes Status: Acute (7) Arthritis of right knee Current Visit: Yes Status: Acute (8) Use of cane as ambulatory aid Current Visit: Yes Status: Acute Cleared for Admission [facility] - Detox or Rehab [facility] Level of Care: Medically Managed Detox Regimen/Protocol: Librium BHS Breath Alcohol Content Breath Alcohol Content: 0 Urine Drug Screen - Results Drug Screen Negative: No Urine Drug Screen Results: THC-Marijuana, ETTA-Cocaine, BZO-Benzodiazepines Inpatient Rehab Admission - Rehab Decision to Admit Inpatient rehab admission?: No
[2018-05-18] MEDS ORDERED: MAGNESIUM HYDROX 2400MG/30ML ORAL SUSPENSION 30 ML CUP PO PRN (11:44)
[2018-05-18] MEDS ORDERED: IBUPROFEN 400 MG TABLET (FP) PO PRN (11:44)
[2018-05-18] MEDS ORDERED: MAG HYDROX/AL HYDROX/SIMETH 30 ML UNIT-DOSE CUP PO PRN (11:44)
[2018-05-18] MEDS ORDERED: MAGNESIUM CITRATE 300 ML BOTTLE PO PRN (11:44)
[2018-05-18] MEDS ORDERED: MENTHOL/PHENOL 1 EACH UD MM PRN (11:44)
[2018-05-18] MEDS ORDERED: ACETAMINOPHEN 325 MG TABLET (FP) PO PRN (11:44)
[2018-05-18] MEDS ORDERED: P-EPHED 60MG/TRIPROLIDI 2.5MG TABLET PO PRN (11:44)
[2018-05-18] MEDS ORDERED: chlordiazePOXIDE HCL 25 MG CAPSULE PO PRN (11:44)
[2018-05-18] MEDS ORDERED: guaiFENesin/D-METHORPHAN HB 10 ML UNIT-DOSE CUPS PO PRN (11:44)
[2018-05-18] MEDS ORDERED: hydrOXYzine PAMOATE 50 MG CAPSULE (FP) PO PRN (11:44)
[2018-05-18] MEDS ORDERED: LOPERAMIDE HCL 2 MG CAPSULE PO PRN (11:44)
[2018-05-18] MEDS: chlordiazePOXIDE HCL 25 MG CAPSULE PO SCH ×2 (17:55→22:20)
[2018-05-18] MEDS: THIAMINE HCL 100 MG TABLET (FP) PO SCH (22:20)
[2018-05-18] MEDS: MELATONIN 5 MG TABLETS PO PRN (22:21)
[2018-05-18 23:22] LABS: URINE APPEARANCE SLCLOUDY; URINE BILIRUBIN NEGATIVE (<2.0 mg/dL); URINE COLOR YELLOW; URINE GLUCOSE (UA) NEGATIVE (NEGATIVE); URINE KETONE 1+ (NEGATIVE); URINE LEUK ESTERASE TRACE (NEGATIVE); URINE NITRITE NEGATIVE (NEGATIVE); URINE PROTEIN NEGATIVE (NEGATIVE); URINE UROBILINOGEN NEGATIVE mg/dL (0.2-1.0)
[2018-05-18 23:27] LABS: EPI CELLS RARE /HPF (FEW); URINE MUCUS FEW
[2018-05-19] MEDS: chlordiazePOXIDE HCL 25 MG CAPSULE PO SCH ×4 (05:27→22:05)
--- NOTE | 2018-05-19 10:13 | PN ---
S CIWA - CIWA Score Nausea/Vomitin-No Nausea/No Vomiting Muscle Tremors: 2 Anxiety: 3 Agitation: 2 Paroxysmal Sweats: 1-Minimal Palms Moist Orientation: 1-Uncertain about Date Tacttile Disturbances: 0-None Auditory Disturbances: 0-None Visual Disturbances: 0-None Headache: 1-Very Mild CIWA-Ar Total Score: 10 S Progress Note (SOAP) Subjective: tremor sweating low energy restlessness ambulate with cane on hallway steady gait Objective: 05/19/18 10:18 Vital Signs Temperature 97.2 F L 05/19/18 09:13 Pulse Rate 65 05/19/18 09:13 Respiratory Rate 16 05/19/18 09:13 Blood Pressure 108/62 05/19/18 09:13 O2 Sat by Pulse Oximetry (%) Laboratory Last Values Urine Color Yellow 05/18/18 21:00 Urine Appearance Slcloudy 05/18/18 21:00 Urine pH 5.0 (5.0-8.0) 05/18/18 21:00 Ur Specific [place] 1.019 (1.010-1.035) 05/18/18 21:00 Urine Protein Negative (NEGATIVE) 05/18/18 21:00 Urine Glucose (UA) Negative (NEGATIVE) 05/18/18 21:00 Urine Ketones 1+ (NEGATIVE) H 05/18/18 21:00 Urine Blood Negative (NEGATIVE) 05/18/18 21:00 Urine Nitrite Negative (NEGATIVE) 05/18/18 21:00 Urine Bilirubin Negative (<2.0 mg/dL) 05/18/18 21:00 Urine Urobilinogen Negative mg/dL (0.2-1.0) 05/18/18 21:00 Ur Leukocyte Esterase Trace (NEGATIVE) 05/18/18 21:00 Urine WBC (Auto) 4 /hpf (3-5) 05/18/18 21:00 Urine RBC (Auto) <1 /hpf (0-3) 05/18/18 21:00 Ur Epithelial Cells Rare /HPF (FEW) 05/18/18 21:00 Urine Mucus Few 05/18/18 21:00 lab noted Assessment: 05/19/18 10:18 alcohol withdrawal sx Plan: continue detox
[2018-05-19] MEDS: PRENATAL VITAMINS W/ FOLIC ACID TABLET (FP) PO SCH (10:28)
[2018-05-19 10:55] LABS: HEMATOCRIT 46.7 % (35.4-49); HEMOGLOBIN 15.9 GM/dL (11.7-16.9); MCH 32.4 pg (25.7-33.7); MCHC 34.2 g/dl (32.0-35.9); MEAN CELL VOLUME 94.8 fl (80-96); MEAN PLT VOLUME 8.4 fl (7.5-11.1); PLATELET COUNT 312 K/MM3 (134-434); RBC 4.92 M/mm3 (4.00-5.60); RDW 14.8 % (11.9-15.9); WHITE BLOOD COUNT 8.6 K/mm3 (4.0-10.0)
[2018-05-19 11:09] LABS: ALK PHOS 124 U/L (45-117); ANION GAP 5 MMOL/L (8-16); BILIRUBIN,TOTAL 0.6 mg/dL (0.2-1); BLOOD UREA NITROGEN 13 mg/dL (7-18); CHLORIDE 102 mmol/L (98-107); CO2 31 mmol/L (21-32); CREATININE 1.2 mg/dL (0.55-1.3); GLUCOSE,RANDOM 104 mg/dL (74-106); POTASSIUM 3.9 mmol/L (3.5-5.1); SGOT/AST 17 U/L (15-37); SGPT/ALT 24 U/L (13-61); SODIUM 138 mmol/L (136-145); TOT PROT 7.3 g/dl (6.4-8.2)
[2018-05-19] MEDS: MELATONIN 5 MG TABLETS PO PRN (22:05)
[2018-05-19] MEDS: THIAMINE HCL 100 MG TABLET (FP) PO SCH (22:05)
[2018-05-20] MEDS: chlordiazePOXIDE HCL 25 MG CAPSULE PO SCH ×2 (05:45→10:19)
[2018-05-20] MEDS: PRENATAL VITAMINS W/ FOLIC ACID TABLET (FP) PO SCH (10:19)
--- NOTE | 2018-05-20 16:44 | PN ---
[facility] CIWA - CIWA Score Nausea/Vomitin-No Nausea/No Vomiting Muscle Tremors: 3 Anxiety: 2 Agitation: 0-Normal Activity Paroxysmal Sweats: 3 Orientation: 0-Oriented Tacttile Disturbances: 2-Mild Itch/Numbness/Burn Auditory Disturbances: 0-None Visual Disturbances: 1-Very Mild Sensitivity Headache: 0-None Present CIWA-Ar Total Score: 11 BHS Progress Note (SOAP) Subjective: Fatigue, Tremors, Sweating, Anxious. Objective: PATIENT A & O X 3, OBSERVED AMBULATING ON UNIT. IN NO ACUTE DISTRESS. 05/20/18 16:45 Vital Signs Temperature 97.9 F 05/20/18 13:38 Pulse Rate 98 H 05/20/18 13:38 Respiratory Rate 18 05/20/18 13:38 Blood Pressure 137/88 05/20/18 13:38 O2 Sat by Pulse Oximetry (%) Laboratory Tests 05/18/18 05/19/18 05/19/18 21:00 06:00 06:00 WBC 8.6 RBC 4.92 Hgb 15.9 Hct 46.7 MCV 94.8 MCH 32.4 MCHC 34.2 RDW 14.8 D Plt Count 312 MPV 8.4 Sodium 138 Potassium 3.9 Chloride 102 Carbon Dioxide 31 Anion Gap 5 L BUN 13 Creatinine 1.2 Creat Clearance w eGFR > 60 Random Glucose 104 Calcium 9.0 Total Bilirubin 0.6 AST 17 ALT 24 Alkaline Phosphatase 124 H Total Protein 7.3 Albumin 4.0 Urine Color Yellow Urine Appearance Slcloudy Urine pH 5.0 Ur Specific [place] 1.019 Urine Protein Negative Urine Glucose (UA) Negative Urine Ketones 1+ H Urine Blood Negative Urine Nitrite Negative Urine Bilirubin Negative Urine Urobilinogen Negative Ur Leukocyte Esterase Trace Urine WBC (Auto) 4 Urine RBC (Auto) <1 Ur Epithelial Cells Rare Urine Mucus Few RPR Titer 05/19/18 06:00 WBC RBC Hgb Hct MCV MCH MCHC RDW Plt Count MPV Sodium Potassium Chloride Carbon Dioxide Anion Gap BUN Creatinine Creat Clearance w eGFR Random Glucose Calcium Total Bilirubin AST ALT Alkaline Phosphatase Total Protein Albumin Urine Color Urine Appearance Urine pH Ur Specific [place] Urine Protein Urine Glucose (UA) Urine Ketones Urine Blood Urine Nitrite Urine Bilirubin Urine Urobilinogen Ur Leukocyte Esterase Urine WBC (Auto) Urine RBC (Auto) Ur Epithelial Cells Urine Mucus RPR Titer Nonreactive LABS NOTED. Assessment: 05/20/18 16:45 WITHDRAWAL SYMPTOMS. Plan: CONTINUE DETOX.
[2018-05-20] MEDS: chlordiazePOXIDE 5 MG CAPSULE PO SCH ×2 (17:07→22:18)
[2018-05-20] MEDS: THIAMINE HCL 100 MG TABLET (FP) PO SCH (22:18)
[2018-05-20] MEDS: MELATONIN 5 MG TABLETS PO PRN (22:19)
[2018-05-20] MEDS: ALBUTEROL SO4 8 GM HFA INHALER IH PRN (22:20)
[2018-05-21] MEDS: chlordiazePOXIDE 5 MG CAPSULE PO SCH ×2 (06:07→10:43)
[2018-05-21] MEDS: ALBUTEROL SO4 8 GM HFA INHALER IH PRN ×2 (06:09→10:57)
[2018-05-21 09:27] VITALS: BP 106/65; PULSE 80; TEMP 97.3
[2018-05-21] MEDS: PRENATAL VITAMINS W/ FOLIC ACID TABLET (FP) PO SCH (10:43)
--- NOTE | 2018-05-21 13:03 | PN ---
BHS Progress Note (SOAP) Subjective: Patient denies current Withdrawal / Detox symptoms and reports that he feels well overall. Objective: PATIENT A & O X 3, OBSERVED AMBULATING ON UNIT. IN NO ACUTE DISTRESS. 05/21/18 12:56 Vital Signs Temperature 97.3 F L 05/21/18 09:26 Pulse Rate 80 05/21/18 09:26 Respiratory Rate 16 05/21/18 09:26 Blood Pressure 106/65 05/21/18 09:26 O2 Sat by Pulse Oximetry (%) Laboratory Tests 05/18/18 05/19/18 05/19/18 21:00 06:00 06:00 WBC 8.6 RBC 4.92 Hgb 15.9 Hct 46.7 MCV 94.8 MCH 32.4 MCHC 34.2 RDW 14.8 D Plt Count 312 MPV 8.4 Sodium 138 Potassium 3.9 Chloride 102 Carbon Dioxide 31 Anion Gap 5 L BUN 13 Creatinine 1.2 Creat Clearance w eGFR > 60 Random Glucose 104 Calcium 9.0 Total Bilirubin 0.6 AST 17 ALT 24 Alkaline Phosphatase 124 H Total Protein 7.3 Albumin 4.0 Urine Color Yellow Urine Appearance Slcloudy Urine pH 5.0 Ur Specific [place] 1.019 Urine Protein Negative Urine Glucose (UA) Negative Urine Ketones 1+ H Urine Blood Negative Urine Nitrite Negative Urine Bilirubin Negative Urine Urobilinogen Negative Ur Leukocyte Esterase Trace Urine WBC (Auto) 4 Urine RBC (Auto) <1 Ur Epithelial Cells Rare Urine Mucus Few RPR Titer 05/19/18 06:00 WBC RBC Hgb Hct MCV MCH MCHC RDW Plt Count MPV Sodium Potassium Chloride Carbon Dioxide Anion Gap BUN Creatinine Creat Clearance w eGFR Random Glucose Calcium Total Bilirubin AST ALT Alkaline Phosphatase Total Protein Albumin Urine Color Urine Appearance Urine pH Ur Specific [place] Urine Protein Urine Glucose (UA) Urine Ketones Urine Blood Urine Nitrite Urine Bilirubin Urine Urobilinogen Ur Leukocyte Esterase Urine WBC (Auto) Urine RBC (Auto) Ur Epithelial Cells Urine Mucus RPR Titer Nonreactive LABS NOTED. Assessment: 05/21/18 12:57 COMPLETION OF DETOX REGIMEN. Plan: SINCE PATIENT DENIES CURRENT WITHDRAWAL / DETOX SYMPTOMS AND REPORTS THAT HE FEELS WELL OVERALL, PATIENT GRANTED AN EARLY DISCHARGE FROM DETOX UNIT SO THAT HE MAY PROCEED ON TO AFTERCARE PLAN.
--- NOTE | 2018-05-21 13:09 | DS ---
[facility] Detox Discharge Summary Admission Date: 05/18/18 Discharge Date: 05/21/18 - History Present History: Alcohol Dependence, Cannabis Dependence, Cocaine Dependence Additional Comments: PATIENT DENIES CURRENT WITHDRAWAL SYMPTOMS AND REPORTS THAT HE FEELS WELL OVERALL AT TIME OF DISCHARGE FROM DETOX UNIT. PATIENT GOING ON TO [facility] ([place], [place]) FOR AFTERCARE. PATIENT WAS DISCHARGED FROM DETOX UNIT IN STABLE MEDICAL CONDITION. Pertinent Past History: Nicotine Dependence, Use Of Cane As Ambulatory Aid, Weight Loss, Arthritis of Right Knee, Asthma. - Physical Exam Results Vital Signs: Vital Signs Temperature 97.3 F L 05/21/18 09:26 Pulse Rate 80 05/21/18 09:26 Respiratory Rate 16 05/21/18 09:26 Blood Pressure 106/65 05/21/18 09:26 O2 Sat by Pulse Oximetry (%) Pertinent Admission Physical Exam Findings: WITHDRAWAL SYMPTOMS. Laboratory Tests 05/18/18 05/19/18 05/19/18 21:00 06:00 06:00 WBC 8.6 RBC 4.92 Hgb 15.9 Hct 46.7 MCV 94.8 MCH 32.4 MCHC 34.2 RDW 14.8 D Plt Count 312 MPV 8.4 Sodium 138 Potassium 3.9 Chloride 102 Carbon Dioxide 31 Anion Gap 5 L BUN 13 Creatinine 1.2 Creat Clearance w eGFR > 60 Random Glucose 104 Calcium 9.0 Total Bilirubin 0.6 AST 17 ALT 24 Alkaline Phosphatase 124 H Total Protein 7.3 Albumin 4.0 Urine Color Yellow Urine Appearance Slcloudy Urine pH 5.0 Ur Specific [place] 1.019 Urine Protein Negative Urine Glucose (UA) Negative Urine Ketones 1+ H Urine Blood Negative Urine Nitrite Negative Urine Bilirubin Negative Urine Urobilinogen Negative Ur Leukocyte Esterase Trace Urine WBC (Auto) 4 Urine RBC (Auto) <1 Ur Epithelial Cells Rare Urine Mucus Few RPR Titer 05/19/18 06:00 WBC RBC Hgb Hct MCV MCH MCHC RDW Plt Count MPV Sodium Potassium Chloride Carbon Dioxide Anion Gap BUN Creatinine Creat Clearance w eGFR Random Glucose Calcium Total Bilirubin AST ALT Alkaline Phosphatase Total Protein Albumin Urine Color Urine Appearance Urine pH Ur Specific [place] Urine Protein Urine Glucose (UA) Urine Ketones Urine Blood Urine Nitrite Urine Bilirubin Urine Urobilinogen Ur Leukocyte Esterase Urine WBC (Auto) Urine RBC (Auto) Ur Epithelial Cells Urine Mucus RPR Titer Nonreactive LABS NOTED. - Treatment Hospital Course: Detox Protocol Followed, Detoxed Safely, Responded well, Discharged Condition Good Patient has Accepted a Rehab Referral to: PATIENT GOING TO [facility] ([place], [place]). - Medication Discharge Medications: Ambulatory Orders Albuterol Sulfate Inhaler - [Ventolin Hfa Inhaler -] 2 inh PO Q4H PRN #1 inhaler 05/21/18 - Diagnosis (1) Arthritis of right knee Status: Acute (2) Use of cane as ambulatory aid Status: Chronic (3) Weight loss Status: Acute (4) Alcohol dependence with uncomplicated withdrawal Status: Chronic (5) Asthma Status: Chronic Qualifiers: Asthma severity: mild Asthma persistence: intermittent Asthma complication type: uncomplicated Qualified Code(s): J45.20 - Mild intermittent asthma, uncomplicated (6) Cannabis dependence Status: Chronic (7) Cocaine dependence Status: Chronic Qualifiers: Substance use status: uncomplicated Qualified Code(s): F14.20 - Cocaine dependence, uncomplicated (8) Nicotine dependence Status: Chronic Qualifiers: Nicotine product type: cigarettes Substance use status: uncomplicated Qualified Code(s): F17.210 - Nicotine dependence, cigarettes, uncomplicated - AMA Did Patient Leave Against Medical Advice: No
[2018-05-21] MEDS ORDERED: chlordiazePOXIDE HCL 10 MG CAPSULE PO SCH (17:00)
== END 2018-05-21 12:30 | disposition home or self-care (01) | DRG 774 ==
LOC: YASAS 10:14 → Y3N 11:35
PROVIDERS: ADMIT Surgery; ATTEND Surgery
PROC: HZ2ZZZZ Detoxification Services for Substance Abuse Treatment (ICD-10-PCS; principal; 2018-05-18)
DX: F10.230 Alcohol dependence with withdrawal, uncomplicated (principal); F14.20 Cocaine dependence, uncomplicated; F12.20 Cannabis dependence, uncomplicated; F17.210 Nicotine dependence, cigarettes, uncomplicated; J45.20 Mild intermittent asthma, uncomplicated; M13.861 Other specified arthritis, right knee; R26.2 Difficulty in walking, not elsewhere classified; Z99.89 Dependence on other enabling machines and devices; Z88.0 Allergy status to penicillin; Z91.013 Allergy to seafood
CPT/HCPCS: 36415; 80053; 81003; 81015; 85027; 86593

== ENCOUNTER 2018-07-04 10:19 | Inpatient (IN) | payer OTHER ==
[2018-07-04 10:45] VITALS: BMI 25.5
--- NOTE | 2018-07-04 11:08 | HP ---
CIWA Score Nausea/Vomitin Muscle Tremors: 2 Anxiety: 2 Agitation: 2 Paroxysmal Sweats: 1-Minimal Palms Moist Orientation: 0-Oriented Tacttile Disturbances: 1-Very Mild Itch/Numbness Auditory Disturbances: 1-Very Mild Visual Disturbances: 0-None Headache: 2-Mild CIWA-Ar Total Score: 13 - Admission Criteria OASAS Guidelines: Admission for Medically Managed Detox: Requires at least one of the followin. CIWA greater than 12 2. Seizures within the past 24 hours 3. Delirium tremens within the past 24 hours 4. Hallucinations within the past 24 hours 5. Acute intervention needed for co occurring medical disorder 6. Acute intervention needed for co occurring psychiatric disorder 7. Severe withdrawal that cannot be handled at a lower level of care (continued vomiting, continued diarrhea, abnormal vital signs) requiring intravenous medication and/or fluids 8. Admission ROS [facility] - HPI Chief Complaint: i need help to stop drinking alcohol,cocaine and marijuana Allergies/Adverse Reactions: Allergies Allergy/AdvReac Type Severity Reaction Status Date / Time Penicillins Allergy Severe Difficulty Verified 07/04/18 10:37 Breathing shellfish derived Allergy Severe Difficulty Verified 07/04/18 10:37 Breathing History of Present Illness: this 37 years old male with alcohol and cocaine and marijuana dependence, seeking detox,withdrawal symptom, multiple admissions to detox ,last detox 05/18/18 to 05/21/18 keep relapsing weight loss nicotine dependence 1/2 pack/day,do not want nicotine replacement plan to go to rehab after detox fx of left clavicle 3 [facility] of [facility] rib 3 [facility] asthma on albuterol inhaler Exam Limitations: No Limitations - Ebola screening Have you traveled outside of the country in the last 21 days: No Have you had contact with anyone from an Ebola affected area: No - Review of Systems Constitutional: Loss of Appetite, Malaise, Night Sweats, Changes in sleep, Unintentional Wgt. Loss EENT: reports: Nose Congestion Respiratory: reports: No Symptoms reported Cardiac: reports: No Symptoms Reported GI: reports: Nausea, Poor Appetite, Vomiting, Indigestion : reports: No Symptoms Reported Musculoskeletal: reports: Back Pain, Muscle Pain Integumentary: reports: Dryness Neuro: reports: Headache, Tremors Endocrine: reports: No Symptoms Reported Hematology: reports: No Symptoms Reported Psychiatric: reports: No Sypmtoms Reported, Judgement Intact, Mood/Affect Appropiate, Orientated x3 Other Systems: Reviewed and Negative Patient History - Patient Medical History Hx Anemia: No Hx Asthma: Yes (on albuterol inhaler) Hx Chronic Obstructive Pulmonary Disease (COPD): No Hx Cancer: No Hx Cardiac Disorders: No Hx Congestive Heart Failure: No Hx Hypertension: No Hx Hypercholesterolemia: No Hx Pacemaker: No HX Cerebrovascular Accident: No Hx Seizures: No Hx Dementia: No Hx Diabetes: No Hx Gastrointestinal Disorders: No Hx Liver Disease: No Hx Genitourinary Disorders: No Hx Sexually Transmitted Disorders: No Hx Renal Disease (ESRD): No Hx Thyroid Disease: No Hx Human Immunodeficiency Virus (HIV): No (last 04/09 negative) Hx Hepatitis C: No Hx Depression: No Hx Suicide Attempt: No Hx Bipolar Disorder: No Hx Schizophrenia: No Other Medical History: no suicidal,no homicidal,fx left clavicle and right rib 3 weeks ago - Patient Surgical History Past Surgical History: No Hx Neurologic Surgery: No Hx Cataract Extraction: No Hx Cardiac Surgery: No Hx Lung Surgery: No Hx Breast Surgery: No Hx Breast Biopsy: No Hx Abdominal Surgery: No Hx Appendectomy: No Hx Cholecystectomy: No Hx Genitourinary Surgery: No Hx Section: No Hx Orthopedic Surgery: No Anesthesia Reaction: No - PPD History Previous Implant?: Yes Documented Results: Negative w/proof Date: 04/04/18 Results: 0 mm PPD to be Administered?: No - Smoking Cessation Smoking history: Current every day smoker Have you smoked in the past 12 months: Yes Aproximately how many cigarettes per day: 10 Hx Chewing Tobacco Use: No Initiated information on smoking cessation: Yes 'Breaking Loose' booklet given: 07/04/18 - Substances abused Alcohol Substance route: Oral Frequency: Daily Amount used: 20 cans beers ( 16 oz), Age of first use: 14 Date of last use: 07/03/18 Marijuana/Hashish Substance route: Smoking Frequency: 1-2 times per week Amount used: 1 bag Age of first use: 22 Date of last use: 07/02/18 Cocaine Substance route: Inhalation Frequency: 3-6 times per week Amount used: $50 Age of first use: 22 Date of last use: 07/03/18 Family Disease History - Family Disease History Family Disease History: Other: Father (d. aids never met him), Mother ( , etoh, cirrhosis, liver cancer), Sister (2 sisters a & W), Son (1 son age 14 healthy), Daughter (twins age 10 , healthy) Admission Physical Exam S - Vital Signs Vital Signs: Vital Signs - 24 hr 07/04/18 10:27 Temperature 98.1 F Pulse Rate 72 Respiratory 18 Rate Blood Pressure 120/65 - Physical General Appearance: Yes: Moderate Distress, Tremorous, Irritable, Sweating, Anxious HEENTM: Yes: Normal ENT Inspection, OMER, Pharynx Normal Respiratory: Yes: Lungs Clear, Normal Breath Sounds, No Respiratory Distress, Other (fx of right rib fx of left clavicle deformity of left clavicle) Neck: Yes: Within Normal Limits, Supple, Trachea in good position Breast: Yes: Within Normal Limits Cardiology: Yes: Within Normal Limits, Regular Rhythm, Regular Rate, S1, S2 Abdominal: Yes: Within Normal Limits, Normal Bowel Sounds, Non Tender, Flat, Soft Genitourinary: Yes: Within Normal Limits Back: Yes: Muscle Spasm Musculoskeletal: Yes: full range of Motion, Back pain, Muscle Pain Extremities: Yes: Within Normal Limits, Normal Range of Motion, Tremors 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: Yes: program director scouting II-XII NML intact, Fully Oriented, Alert, Motor Strength 5/5 Integumentary: Yes: Dry Lymphatic: Yes: Within Normal Limits - Diagnostic (1) Alcohol dependence with uncomplicated withdrawal Current Visit: No Status: Chronic (2) Arthritis of right knee Current Visit: No Status: Acute (3) Weight loss Current Visit: No Status: Acute (4) Asthma Current Visit: No Status: Chronic Qualifiers: Asthma severity: mild Asthma persistence: intermittent Asthma complication type: uncomplicated Qualified Code(s): J45.20 - Mild intermittent asthma, uncomplicated (5) Cannabis dependence Current Visit: No Status: Chronic (6) Cocaine dependence Current Visit: No Status: Chronic Qualifiers: Substance use status: uncomplicated Qualified Code(s): F14.20 - Cocaine dependence, uncomplicated (7) Nicotine dependence Current Visit: No Status: Chronic Qualifiers: Nicotine product type: cigarettes Substance use status: uncomplicated Qualified Code(s): F17.210 - Nicotine dependence, cigarettes, uncomplicated (8) Clavicle fracture, shaft Current Visit: Yes Status: Acute (9) Fracture of one rib, right side, sequela Current Visit: Yes Status: Acute Cleared for Admission S - Detox or Rehab [facility] Level of Care: Medically Managed Detox Regimen/Protocol: Librium Inpatient Rehab Admission - Rehab Decision to Admit Inpatient rehab admission?: No
[2018-07-04] MEDS ORDERED: METHOCARBAMOL 500 MG TABLET PO PRN (11:21)
[2018-07-04] MEDS ORDERED: MENTHOL/PHENOL 1 EACH UD MM PRN (11:21)
[2018-07-04] MEDS ORDERED: chlordiazePOXIDE HCL 25 MG CAPSULE PO PRN (11:21)
[2018-07-04] MEDS ORDERED: MAGNESIUM CITRATE 300 ML BOTTLE PO PRN (11:21)
[2018-07-04] MEDS ORDERED: MAG HYDROX/AL HYDROX/SIMETH 30 ML UNIT-DOSE CUP PO PRN (11:21)
[2018-07-04] MEDS ORDERED: MELATONIN 5 MG TABLETS PO PRN (11:21)
[2018-07-04] MEDS ORDERED: BISMUTH SUBSALICYLATE 262 MG/15 ML BTL PO PRN (11:21)
[2018-07-04] MEDS ORDERED: ACETAMINOPHEN 325 MG TABLET (FP) PO PRN ×2 (11:21)
[2018-07-04] MEDS ORDERED: hydrOXYzine PAMOATE 25 MG CAPSULE (FP) PO PRN (11:21)
[2018-07-04] MEDS ORDERED: MAGNESIUM HYDROX 2400MG/30ML ORAL SUSPENSION 30 ML CUP PO PRN (11:21)
[2018-07-04] MEDS ORDERED: ALBUTEROL SO4 8 GM HFA INHALER IH PRN (11:23)
[2018-07-04] MEDS: SULFAMETHOXAZOLE/TRIMETHOPRIM 800MG/160MG D.S. TABLET PO SCH ×2 (12:50→22:15)
[2018-07-04] MEDS: IBUPROFEN 400 MG TABLET (FP) PO PRN (12:50)
[2018-07-04 14:38] LABS: HEMATOCRIT 42.8 % (35.4-49); HEMOGLOBIN 14.5 GM/dL (11.7-16.9); MCH 32.4 pg (25.7-33.7); MEAN CELL VOLUME 95.4 fl (80-96); MEAN PLT VOLUME 8.1 fl (7.5-11.1); PLATELET COUNT 310 K/MM3 (134-434); RBC 4.49 M/mm3 (4.00-5.60); RDW 15.1 % (11.9-15.9); WHITE BLOOD COUNT 6.7 K/mm3 (4.0-10.0)
[2018-07-04 14:57] LABS: ALBUMIN 3.6 g/dl (3.4-5.0); ALK PHOS 164 U/L (45-117); ANION GAP 5 MMOL/L (8-16); BILIRUBIN,TOTAL 0.2 mg/dL (0.2-1); BLOOD UREA NITROGEN 16 mg/dL (7-18); CALCIUM 8.7 mg/dL (8.5-10.1); CHLORIDE 106 mmol/L (98-107); CO2 27 mmol/L (21-32); GLUCOSE,RANDOM 103 mg/dL (74-106); SGOT/AST 12 U/L (15-37); SGPT/ALT 19 U/L (13-61); SODIUM 139 mmol/L (136-145); TOT PROT 6.7 g/dl (6.4-8.2)
[2018-07-04] MEDS: chlordiazePOXIDE HCL 25 MG CAPSULE PO SCH ×2 (17:07→22:15)
[2018-07-04] MEDS: THIAMINE HCL 100 MG TABLET (FP) PO SCH (22:15)
[2018-07-05] MEDS: chlordiazePOXIDE HCL 25 MG CAPSULE PO SCH ×4 (05:44→22:09)
[2018-07-05] MEDS: SULFAMETHOXAZOLE/TRIMETHOPRIM 800MG/160MG D.S. TABLET PO SCH ×2 (10:09→22:09)
[2018-07-05] MEDS: PRENATAL VITAMINS W/ FOLIC ACID TABLET (FP) PO SCH (10:09)
--- NOTE | 2018-07-05 10:10 | PN ---
S CIWA - CIWA Score Nausea/Vomitin-Mild Nausea/No Vomiting Muscle Tremors: 2 Anxiety: 3 Agitation: 2 Paroxysmal Sweats: 1-Minimal Palms Moist Orientation: 1-Uncertain about Date Tacttile Disturbances: 0-None Auditory Disturbances: 0-None Visual Disturbances: 0-None Headache: 2-Mild CIWA-Ar Total Score: 12 S Progress Note (SOAP) Subjective: tremor otherwise feeling ok Objective: 07/05/18 10:10 Vital Signs Temperature 98.2 F 07/05/18 09:24 Pulse Rate 95 H 07/05/18 09:24 Respiratory Rate 18 07/05/18 09:24 Blood Pressure 121/69 07/05/18 09:24 O2 Sat by Pulse Oximetry (%) Laboratory Last Values WBC 6.7 K/mm3 (4.0-10.0) 07/04/18 12:00 RBC 4.49 M/mm3 (4.00-5.60) 07/04/18 12:00 Hgb 14.5 GM/dL (11.7-16.9) 07/04/18 12:00 Hct 42.8 % (35.4-49) 07/04/18 12:00 MCV 95.4 fl (80-96) 07/04/18 12:00 MCH 32.4 pg (25.7-33.7) 07/04/18 12:00 MCHC 34.0 g/dl (32.0-35.9) 07/04/18 12:00 RDW 15.1 % (11.9-15.9) 07/04/18 12:00 Plt Count 310 K/MM3 (134-434) 07/04/18 12:00 MPV 8.1 fl (7.5-11.1) 07/04/18 12:00 Sodium 139 mmol/L (136-145) 07/04/18 12:00 Potassium 4.0 mmol/L (3.5-5.1) 07/04/18 12:00 Chloride 106 mmol/L (98-107) 07/04/18 12:00 Carbon Dioxide 27 mmol/L (21-32) 07/04/18 12:00 Anion Gap 5 MMOL/L (8-16) L 07/04/18 12:00 BUN 16 mg/dL (7-18) 07/04/18 12:00 Creatinine 1.0 mg/dL (0.55-1.3) 07/04/18 12:00 Creat Clearance w eGFR 83.63 (>60) 07/04/18 12:00 Random Glucose 103 mg/dL (74-106) 07/04/18 12:00 Calcium 8.7 mg/dL (8.5-10.1) 07/04/18 12:00 Total Bilirubin 0.2 mg/dL (0.2-1) 07/04/18 12:00 AST 12 U/L (15-37) L 07/04/18 12:00 ALT 19 U/L (13-61) 07/04/18 12:00 Alkaline Phosphatase 164 U/L (45-117) H 07/04/18 12:00 Total Protein 6.7 g/dl (6.4-8.2) 07/04/18 12:00 Albumin 3.6 g/dl (3.4-5.0) 07/04/18 12:00 lab noted Assessment: 07/05/18 10:10 withdrawal sx Plan: continue detox
[2018-07-05] MEDS: THIAMINE HCL 100 MG TABLET (FP) PO SCH (22:09)
[2018-07-06] MEDS: chlordiazePOXIDE HCL 25 MG CAPSULE PO SCH ×2 (05:50→10:09)
[2018-07-06] MEDS: SULFAMETHOXAZOLE/TRIMETHOPRIM 800MG/160MG D.S. TABLET PO SCH ×2 (10:09→22:22)
[2018-07-06] MEDS: PRENATAL VITAMINS W/ FOLIC ACID TABLET (FP) PO SCH (10:09)
--- NOTE | 2018-07-06 11:26 | PN ---
[facility] CIWA - CIWA Score Nausea/Vomitin-Mild Nausea/No Vomiting Muscle Tremors: 2 Anxiety: 2 Agitation: 2 Paroxysmal Sweats: 1-Minimal Palms Moist Orientation: 1-Uncertain about Date Tacttile Disturbances: 0-None Auditory Disturbances: 0-None Visual Disturbances: 0-None Headache: 0-None Present CIWA-Ar Total Score: 9 S Progress Note (SOAP) Subjective: feeling ok today sleep better at night but low energy Objective: 07/06/18 11:25 Vital Signs Temperature 97.1 F L 07/06/18 09:47 Pulse Rate 80 07/06/18 09:47 Respiratory Rate 18 07/06/18 09:47 Blood Pressure 106/67 07/06/18 09:47 O2 Sat by Pulse Oximetry (%) Laboratory Last Values WBC 6.7 K/mm3 (4.0-10.0) 07/04/18 12:00 RBC 4.49 M/mm3 (4.00-5.60) 07/04/18 12:00 Hgb 14.5 GM/dL (11.7-16.9) 07/04/18 12:00 Hct 42.8 % (35.4-49) 07/04/18 12:00 MCV 95.4 fl (80-96) 07/04/18 12:00 MCH 32.4 pg (25.7-33.7) 07/04/18 12:00 MCHC 34.0 g/dl (32.0-35.9) 07/04/18 12:00 RDW 15.1 % (11.9-15.9) 07/04/18 12:00 Plt Count 310 K/MM3 (134-434) 07/04/18 12:00 MPV 8.1 fl (7.5-11.1) 07/04/18 12:00 Sodium 139 mmol/L (136-145) 07/04/18 12:00 Potassium 4.0 mmol/L (3.5-5.1) 07/04/18 12:00 Chloride 106 mmol/L (98-107) 07/04/18 12:00 Carbon Dioxide 27 mmol/L (21-32) 07/04/18 12:00 Anion Gap 5 MMOL/L (8-16) L 07/04/18 12:00 BUN 16 mg/dL (7-18) 07/04/18 12:00 Creatinine 1.0 mg/dL (0.55-1.3) 07/04/18 12:00 Creat Clearance w eGFR 83.63 (>60) 07/04/18 12:00 Random Glucose 103 mg/dL (74-106) 07/04/18 12:00 Calcium 8.7 mg/dL (8.5-10.1) 07/04/18 12:00 Total Bilirubin 0.2 mg/dL (0.2-1) 07/04/18 12:00 AST 12 U/L (15-37) L 07/04/18 12:00 ALT 19 U/L (13-61) 07/04/18 12:00 Alkaline Phosphatase 164 U/L (45-117) H 07/04/18 12:00 Total Protein 6.7 g/dl (6.4-8.2) 07/04/18 12:00 Albumin 3.6 g/dl (3.4-5.0) 07/04/18 12:00 RPR Titer Nonreactive (NONREACTIVE) 07/04/18 12:00 lab noted Assessment: 07/06/18 11:25 withdrawal sx Plan: continue detox
[2018-07-06] MEDS ORDERED: chlordiazePOXIDE HCL 10 MG CAPSULE PO PRN (17:00)
[2018-07-06] MEDS: chlordiazePOXIDE HCL 10 MG CAPSULE PO SCH ×2 (17:29→22:21)
[2018-07-06] MEDS: THIAMINE HCL 100 MG TABLET (FP) PO SCH (22:21)
[2018-07-07] MEDS: chlordiazePOXIDE HCL 10 MG CAPSULE PO SCH ×2 (05:58→10:22)
[2018-07-07] MEDS: IBUPROFEN 400 MG TABLET (FP) PO PRN (06:00)
[2018-07-07] MEDS: PRENATAL VITAMINS W/ FOLIC ACID TABLET (FP) PO SCH (10:22)
[2018-07-07] MEDS: SULFAMETHOXAZOLE/TRIMETHOPRIM 800MG/160MG D.S. TABLET PO SCH (10:22)
[2018-07-07 13:39] VITALS: BP 117/69; PULSE 91; TEMP 98
--- NOTE | 2018-07-07 14:42 | PN ---
S CIWA - CIWA Score Nausea/Vomitin-Mild Nausea/No Vomiting Muscle Tremors: 2 Anxiety: 1-Mildly Anxious Agitation: 2 Paroxysmal Sweats: 1-Minimal Palms Moist Orientation: 0-Oriented Tacttile Disturbances: 0-None Auditory Disturbances: 0-None Visual Disturbances: 0-None Headache: 0-None Present CIWA-Ar Total Score: 7 S Progress Note (SOAP) Subjective: left clavical fx x 2-3 weeks ago treated with sling feft fingers wrists full range of motion brisk capillary refilled skin warm +2 pulses denies pain breathe ease and even Objective: 07/07/18 14:46 Vital Signs Temperature 98.0 F 07/07/18 13:39 Pulse Rate 91 H 07/07/18 13:39 Respiratory Rate 18 07/07/18 13:39 Blood Pressure 117/69 07/07/18 13:39 O2 Sat by Pulse Oximetry (%) Laboratory Last Values WBC 6.7 K/mm3 (4.0-10.0) 07/04/18 12:00 RBC 4.49 M/mm3 (4.00-5.60) 07/04/18 12:00 Hgb 14.5 GM/dL (11.7-16.9) 07/04/18 12:00 Hct 42.8 % (35.4-49) 07/04/18 12:00 MCV 95.4 fl (80-96) 07/04/18 12:00 MCH 32.4 pg (25.7-33.7) 07/04/18 12:00 MCHC 34.0 g/dl (32.0-35.9) 07/04/18 12:00 RDW 15.1 % (11.9-15.9) 07/04/18 12:00 Plt Count 310 K/MM3 (134-434) 07/04/18 12:00 MPV 8.1 fl (7.5-11.1) 07/04/18 12:00 Sodium 139 mmol/L (136-145) 07/04/18 12:00 Potassium 4.0 mmol/L (3.5-5.1) 07/04/18 12:00 Chloride 106 mmol/L (98-107) 07/04/18 12:00 Carbon Dioxide 27 mmol/L (21-32) 07/04/18 12:00 Anion Gap 5 MMOL/L (8-16) L 07/04/18 12:00 BUN 16 mg/dL (7-18) 07/04/18 12:00 Creatinine 1.0 mg/dL (0.55-1.3) 07/04/18 12:00 Creat Clearance w eGFR 83.63 (>60) 07/04/18 12:00 Random Glucose 103 mg/dL (74-106) 07/04/18 12:00 Calcium 8.7 mg/dL (8.5-10.1) 07/04/18 12:00 Total Bilirubin 0.2 mg/dL (0.2-1) 07/04/18 12:00 AST 12 U/L (15-37) L 07/04/18 12:00 ALT 19 U/L (13-61) 07/04/18 12:00 Alkaline Phosphatase 164 U/L (45-117) H 07/04/18 12:00 Total Protein 6.7 g/dl (6.4-8.2) 07/04/18 12:00 Albumin 3.6 g/dl (3.4-5.0) 07/04/18 12:00 RPR Titer Nonreactive (NONREACTIVE) 07/04/18 12:00 lab noted Assessment: 07/07/18 14:47 withdrawal sx Plan: continue detox
--- NOTE | 2018-07-07 15:28 | DS ---
[facility] Detox Discharge Summary Admission Date: 07/04/18 Discharge Date: 07/07/18 - History Present History: Alcohol Dependence Additional Comments: 37 years old male admitted on 07/04/18 for alcohol withdrawal stabilization feeling better today preferring to go home today and begin [place] on 07/12/18 alert no acute distress denies suicidal ideation Pertinent Past History: bring medication list and lab report to aftercare appointment - Physical Exam Results Vital Signs: Vital Signs Temperature 98.0 F 07/07/18 13:39 Pulse Rate 91 H 07/07/18 13:39 Respiratory Rate 18 07/07/18 13:39 Blood Pressure 117/69 07/07/18 13:39 O2 Sat by Pulse Oximetry (%) Pertinent Admission Physical Exam Findings: alcohol withdrawal sx Laboratory Last Values WBC 6.7 K/mm3 (4.0-10.0) 07/04/18 12:00 RBC 4.49 M/mm3 (4.00-5.60) 07/04/18 12:00 Hgb 14.5 GM/dL (11.7-16.9) 07/04/18 12:00 Hct 42.8 % (35.4-49) 07/04/18 12:00 MCV 95.4 fl (80-96) 07/04/18 12:00 MCH 32.4 pg (25.7-33.7) 07/04/18 12:00 MCHC 34.0 g/dl (32.0-35.9) 07/04/18 12:00 RDW 15.1 % (11.9-15.9) 07/04/18 12:00 Plt Count 310 K/MM3 (134-434) 07/04/18 12:00 MPV 8.1 fl (7.5-11.1) 07/04/18 12:00 Sodium 139 mmol/L (136-145) 07/04/18 12:00 Potassium 4.0 mmol/L (3.5-5.1) 07/04/18 12:00 Chloride 106 mmol/L (98-107) 07/04/18 12:00 Carbon Dioxide 27 mmol/L (21-32) 07/04/18 12:00 Anion Gap 5 MMOL/L (8-16) L 07/04/18 12:00 BUN 16 mg/dL (7-18) 07/04/18 12:00 Creatinine 1.0 mg/dL (0.55-1.3) 07/04/18 12:00 Creat Clearance w eGFR 83.63 (>60) 07/04/18 12:00 Random Glucose 103 mg/dL (74-106) 07/04/18 12:00 Calcium 8.7 mg/dL (8.5-10.1) 07/04/18 12:00 Total Bilirubin 0.2 mg/dL (0.2-1) 07/04/18 12:00 AST 12 U/L (15-37) L 07/04/18 12:00 ALT 19 U/L (13-61) 07/04/18 12:00 Alkaline Phosphatase 164 U/L (45-117) H 07/04/18 12:00 Total Protein 6.7 g/dl (6.4-8.2) 07/04/18 12:00 Albumin 3.6 g/dl (3.4-5.0) 07/04/18 12:00 RPR Titer Nonreactive (NONREACTIVE) 07/04/18 12:00 lab noted - Treatment Hospital Course: Detox Protocol Followed, Detoxed Safely, Responded well, Discharged Condition Good, Rehab Referral Accepted Patient has Accepted a Rehab Referral to: [facility] - Medication Discharge Medications: Ambulatory Orders Albuterol Sulfate Inhaler - [Ventolin HFA Inhaler -] 2 inh PO Q4H PRN #1 inhaler 07/07/18 - Diagnosis (1) Alcohol dependence with uncomplicated withdrawal Current Visit: Yes Status: Acute (2) Asthma Current Visit: Yes Status: Chronic Qualifiers: Asthma severity: mild Asthma persistence: intermittent Asthma complication type: uncomplicated Qualified Code(s): J45.20 - Mild intermittent asthma, uncomplicated (3) Nicotine dependence Current Visit: Yes Status: Acute Qualifiers: Nicotine product type: cigarettes Substance use status: in withdrawal Qualified Code(s): F17.213 - Nicotine dependence, cigarettes, with withdrawal - AMA Did Patient Leave Against Medical Advice: No
[2018-07-07] MEDS ORDERED: chlordiazePOXIDE HCL 10 MG CAPSULE PO SCH (17:00)
== END 2018-07-07 15:44 | disposition home or self-care (01) | DRG 774 ==
LOC: YASAS 10:19 → Y3N 11:18
PROVIDERS: ADMIT Surgery; ATTEND Surgery
PROC: HZ2ZZZZ Detoxification Services for Substance Abuse Treatment (ICD-10-PCS; principal; 2018-07-04)
DX: F10.230 Alcohol dependence with withdrawal, uncomplicated (principal); F14.20 Cocaine dependence, uncomplicated; F12.20 Cannabis dependence, uncomplicated; F17.213 Nicotine dependence, cigarettes, with withdrawal; J45.20 Mild intermittent asthma, uncomplicated; M17.11 Unilateral primary osteoarthritis, right knee; S42.002D Fracture of unspecified part of left clavicle, subsequent encounter for fracture with routine healing; S22.31XD Fracture of one rib, right side, subsequent encounter for fracture with routine healing; X58.XXXD Exposure to other specified factors, subsequent encounter
CPT/HCPCS: 36415; 80053; 85027; 86593

== ENCOUNTER 2018-10-19 08:41 | Inpatient (IN) | payer OTHER ==
[2018-10-19 09:10] VITALS: BMI 26.2
--- NOTE | 2018-10-19 10:00 | HP ---
CIWA Score Nausea/Vomitin Muscle Tremors: 2 Anxiety: 3 Agitation: 3 Paroxysmal Sweats: 1-Minimal Palms Moist Orientation: 0-Oriented Tacttile Disturbances: 1-Very Mild Itch/Numbness Auditory Disturbances: 0-None Visual Disturbances: 0-None Headache: 2-Mild CIWA-Ar Total Score: 14 - Admission Criteria OASAS Guidelines: Admission for Medically Managed Detox: Requires at least one of the followin. CIWA greater than 12 2. Seizures within the past 24 hours 3. Delirium tremens within the past 24 hours 4. Hallucinations within the past 24 hours 5. Acute intervention needed for co occurring medical disorder 6. Acute intervention needed for co occurring psychiatric disorder 7. Severe withdrawal that cannot be handled at a lower level of care (continued vomiting, continued diarrhea, abnormal vital signs) requiring intravenous medication and/or fluids 8. Admission ROS S - HPI Chief Complaint: i need help to stop drinking alcohol,cocaine and marijuana Allergies/Adverse Reactions: Allergies Allergy/AdvReac Type Severity Reaction Status Date / Time Penicillins Allergy Severe Difficulty Verified 10/19/18 08:51 Breathing shellfish derived Allergy Severe Difficulty Verified 10/19/18 08:51 Breathing History of Present Illness: this 37 years old male with alcohol,cocaine and marijuana dependence seeking detox,withdrawal symptom, no seizure syncope seen in [place] last night multiple admissions in detox,last [facility] 07/04/18 to 07/07/18 nicotine dependence does not want nicotine replacement longest period sobiety 3 years would like to go to rehab after detox - Ebola screening Have you traveled outside of the country in the last 21 days: No Have you had contact with anyone from an Ebola affected area: No Do you have a fever: No - Review of Systems Constitutional: Loss of Appetite, Malaise, Night Sweats, Changes in sleep, Weakness, Unintentional Wgt. Loss EENT: reports: Nose Congestion Respiratory: reports: No Symptoms reported Cardiac: reports: No Symptoms Reported GI: reports: Nausea, Poor Appetite, Abdominal cramping : reports: No Symptoms Reported Musculoskeletal: reports: Back Pain, Muscle Pain Integumentary: reports: Dryness Neuro: reports: Headache, Tremors Endocrine: reports: No Symptoms Reported Hematology: reports: No Symptoms Reported Psychiatric: reports: No Sypmtoms Reported, Judgement Intact, Mood/Affect Appropiate, Orientated x3 Other Systems: Reviewed and Negative Patient History - Patient Medical History Hx Anemia: No Hx Asthma: Yes (on albuterol inhaler) Hx Chronic Obstructive Pulmonary Disease (COPD): No Hx Cancer: No Hx Cardiac Disorders: No Hx Congestive Heart Failure: No Hx Hypertension: No Hx Hypercholesterolemia: No Hx Pacemaker: No HX Cerebrovascular Accident: No Hx Seizures: No Hx Dementia: No Hx Diabetes: No Hx Gastrointestinal Disorders: No Hx Liver Disease: No Hx Genitourinary Disorders: No Hx Sexually Transmitted Disorders: No Hx Renal Disease (ESRD): No Hx Thyroid Disease: No Hx Human Immunodeficiency Virus (HIV): No (last 04/09 negative) Hx Hepatitis C: No Hx Depression: No Hx Suicide Attempt: No Hx Bipolar Disorder: No Hx Schizophrenia: No Other Medical History: no suicidal,no homicidal - Patient Surgical History Past Surgical History: No Hx Neurologic Surgery: No Hx Cataract Extraction: No Hx Cardiac Surgery: No Hx Lung Surgery: No Hx Breast Surgery: No Hx Breast Biopsy: No Hx Abdominal Surgery: No Hx Appendectomy: No Hx Cholecystectomy: No Hx Genitourinary Surgery: No Hx Section: No Hx Orthopedic Surgery: No Anesthesia Reaction: No - PPD History Previous Implant?: Yes Documented Results: Negative w/proof Date: 04/04/18 Results: 0 mm PPD to be Administered?: No - Smoking Cessation Smoking history: Current every day smoker Have you smoked in the past 12 months: Yes Aproximately how many cigarettes per day: 10 Hx Chewing Tobacco Use: No Initiated information on smoking cessation: Yes 'Breaking Loose' booklet given: 10/19/18 - Substance & Tx. History Hx Alcohol Use: Yes Hx Substance Use: Yes Substance Use Type: Alcohol, Cocaine, Marijuana Hx Substance Use Treatment: Yes ([facility] 07/04/18 to 07/07/18) - Substances abused Alcohol Substance route: Oral Frequency: Daily Amount used: 20 cans beers ( 16 oz), Age of first use: 14 Date of last use: 10/18/18 Marijuana/Hashish Substance route: Smoking Frequency: 1-2 times per week Amount used: 3 bag Age of first use: 22 Date of last use: 10/18/18 Cocaine Substance route: Inhalation Frequency: 3-6 times per week Amount used: $20 Age of first use: 22 Date of last use: 10/18/18 Family Disease History - Family Disease History Family Disease History: Other: Father (d. aids never met him), Mother ( , etoh, cirrhosis, liver cancer), Sister (2 sisters a & W), Son (1 son age 14 healthy), Daughter (twins age 10 , healthy) Admission Physical Exam [facility] - Vital Signs Vital Signs: Vital Signs - 24 hr 10/19/18 08:51 Temperature 96.9 F L Pulse Rate 67 Respiratory 18 Rate Blood Pressure 118/70 - Physical General Appearance: Yes: Moderate Distress, Tremorous, Irritable, Sweating, Anxious HEENTM: Yes: Normal ENT Inspection, OMER, Pharynx Normal, Tm's normal Respiratory: Yes: Within Normal Limits, Lungs Clear, Normal Breath Sounds Neck: Yes: Within Normal Limits, Supple, Trachea in good position Breast: Yes: Within Normal Limits Cardiology: Yes: Within Normal Limits, Regular Rhythm, Regular Rate, S1, S2 Abdominal: Yes: Normal Bowel Sounds, Non Tender, Flat, Soft, Organomegaly Genitourinary: Yes: Within Normal Limits Back: Yes: Muscle Spasm Musculoskeletal: Yes: full range of Motion, Back pain, Muscle Pain Extremities: Yes: Tremors 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: 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: 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 NML intact, Fully Oriented, Alert, Motor Strength 5/5 Integumentary: Yes: Dry Lymphatic: Yes: Within Normal Limits - Diagnostic (1) Alcohol dependence with uncomplicated withdrawal Current Visit: No Status: Acute (2) Arthritis of right knee Current Visit: No Status: Acute (3) Clavicle fracture, shaft Current Visit: No Status: Acute (4) Fracture of one rib, right side, sequela Current Visit: No Status: Acute (5) Nicotine dependence Current Visit: No Status: Acute Qualifiers: Nicotine product type: cigarettes Substance use status: in withdrawal Qualified Code(s): F17.213 - Nicotine dependence, cigarettes, with withdrawal (6) Weight loss Current Visit: No Status: Acute (7) Asthma Current Visit: No Status: Chronic Qualifiers: Asthma severity: mild Asthma persistence: intermittent Asthma complication type: uncomplicated Qualified Code(s): J45.20 - Mild intermittent asthma, uncomplicated (8) Cannabis dependence Current Visit: No Status: Chronic (9) Cocaine dependence Current Visit: No Status: Chronic Qualifiers: Substance use status: uncomplicated Qualified Code(s): F14.20 - Cocaine dependence, uncomplicated Cleared for Admission [facility] - Detox or Rehab [facility] Level of Care: Medically Managed Detox Regimen/Protocol: Librium Breathalyzer - Breathalyzer Breathalyzer: 0 Urine Drug Screen - Test Device Lot number: [id number] Expiration date: 07/19/20 - Control Is test valid?: Yes - Results Drug screen NEGATIVE: No Urine drug screen results: THC-Marijuana, ETTA-Cocaine, BZO-Benzodiazepines Inpatient Rehab Admission - Rehab Decision to Admit Inpatient rehab admission?: No
[2018-10-19] MEDS ORDERED: MAGNESIUM CITRATE 300 ML BOTTLE PO PRN (10:06)
[2018-10-19] MEDS ORDERED: IBUPROFEN 400 MG TABLET (FP) PO PRN (10:06)
[2018-10-19] MEDS ORDERED: BISMUTH SUBSALICYLATE 524 MG/30 ML UD PO PRN (10:06)
[2018-10-19] MEDS ORDERED: METHOCARBAMOL 500 MG TABLET PO PRN (10:06)
[2018-10-19] MEDS ORDERED: chlordiazePOXIDE HCL 25 MG CAPSULE PO PRN (10:06)
[2018-10-19] MEDS ORDERED: MAGNESIUM HYDROX 2400MG/30ML ORAL SUSPENSION 30 ML CUP PO PRN (10:06)
[2018-10-19] MEDS ORDERED: MENTHOL/PHENOL 1 EACH UD MM PRN (10:06)
[2018-10-19] MEDS ORDERED: MAG HYDROX/AL HYDROX/SIMETH 30 ML UNIT-DOSE CUP PO PRN (10:06)
[2018-10-19] MEDS ORDERED: hydrOXYzine PAMOATE 25 MG CAPSULE (FP) PO PRN (10:06)
[2018-10-19] MEDS ORDERED: ACETAMINOPHEN 325 MG TABLET (FP) PO PRN ×2 (10:06)
[2018-10-19] MEDS ORDERED: ALBUTEROL SO4 8 GM HFA INHALER IH PRN (10:09)
[2018-10-19] MEDS: chlordiazePOXIDE HCL 25 MG CAPSULE PO SCH ×3 (11:04→22:25)
[2018-10-19 14:54] LABS: HEMATOCRIT 43.9 % (35.4-49); HEMOGLOBIN 14.8 GM/dL (11.7-16.9); MCH 32.2 pg (25.7-33.7); MCHC 33.7 g/dl (32.0-35.9); MEAN CELL VOLUME 95.5 fl (80-96); MEAN PLT VOLUME 8.1 fl (7.5-11.1); PLATELET COUNT 275 K/MM3 (134-434); RDW 14.1 % (11.9-15.9); WHITE BLOOD COUNT 7.1 K/mm3 (4.0-10.0)
[2018-10-19 15:11] LABS: ALBUMIN 3.8 g/dl (3.4-5.0); BILIRUBIN,TOTAL 0.3 mg/dL (0.2-1); BLOOD UREA NITROGEN 16.8 mg/dL (7-18); CALCIUM 9.1 mg/dL (8.5-10.1); POTASSIUM 4.1 mmol/L (3.5-5.1); TOT PROT 7.2 g/dl (6.4-8.2)
[2018-10-19] MEDS: THIAMINE HCL 100 MG TABLET (FP) PO SCH (22:25)
[2018-10-19] MEDS: MELATONIN 5 MG TABLETS PO PRN (22:26)
[2018-10-20] MEDS: chlordiazePOXIDE HCL 25 MG CAPSULE PO SCH ×4 (06:18→22:19)
[2018-10-20] MEDS: PRENATAL VITAMINS W/ FOLIC ACID TABLET (FP) PO SCH (10:06)
[2018-10-20 11:55] LABS: URINE APPEARANCE CLEAR; URINE BILIRUBIN NEGATIVE (NEGATIVE); URINE COLOR YELLOW; URINE GLUCOSE (UA) NEGATIVE (NEGATIVE); URINE KETONE NEGATIVE (NEGATIVE); URINE LEUK ESTERASE NEGATIVE (NEGATIVE); URINE NITRITE NEGATIVE (NEGATIVE); URINE PROTEIN NEGATIVE (NEGATIVE); URINE UROBILINOGEN 0.2 mg/dL (0.2-1.0)
--- NOTE | 2018-10-20 15:47 | PN ---
[facility] CIWA - CIWA Score Nausea/Vomitin-No Nausea/No Vomiting Muscle Tremors: None Anxiety: 3 Agitation: 1-Slight > Activity Paroxysmal Sweats: 3 Orientation: 2-Disoriented Date<2 days Tacttile Disturbances: 0-None Auditory Disturbances: 1-Very Mild Visual Disturbances: 2-Mild Sensitivity Headache: 0-None Present CIWA-Ar Total Score: 12 [facility] Progress Note (SOAP) Subjective: Anxious, Hot Flashes, Sweating. Objective: PATIENT A & O X 2 (UNCERTAIN ABOUT CURRENT DAY / DATE). IN NO ACUTE DISTRESS. 10/20/18 15:47 Vital Signs Temperature 97.9 F 10/20/18 13:47 Pulse Rate 94 H 10/20/18 13:47 Respiratory Rate 18 10/20/18 13:47 Blood Pressure 118/75 10/20/18 13:47 O2 Sat by Pulse Oximetry (%) Laboratory Tests 10/19/18 10/19/18 10/19/18 10:20 10:20 10:20 WBC 7.1 RBC 4.60 Hgb 14.8 Hct 43.9 MCV 95.5 MCH 32.2 MCHC 33.7 RDW 14.1 Plt Count 275 MPV 8.1 Sodium 140 Potassium 4.1 Chloride 106 Carbon Dioxide 28 Anion Gap 6 L BUN 16.8 Creatinine 1.0 Est GFR (CKD-EPI)AfAm 110.17 Est GFR (CKD-EPI)NonAf 95.05 Random Glucose 69 L Calcium 9.1 Total Bilirubin 0.3 AST 18 ALT 27 Alkaline Phosphatase 147 H Total Protein 7.2 Albumin 3.8 Urine Color Urine Appearance Urine pH Ur Specific [place] Urine Protein Urine Glucose (UA) Urine Ketones Urine Blood Urine Nitrite Urine Bilirubin Urine Urobilinogen Ur Leukocyte Esterase RPR Titer Nonreactive 10/20/18 09:25 WBC RBC Hgb Hct MCV MCH MCHC RDW Plt Count MPV Sodium Potassium Chloride Carbon Dioxide Anion Gap BUN Creatinine Est GFR (CKD-EPI)AfAm Est GFR (CKD-EPI)NonAf Random Glucose Calcium Total Bilirubin AST ALT Alkaline Phosphatase Total Protein Albumin Urine Color Yellow Urine Appearance Clear Urine pH 6.0 Ur Specific [place] 1.020 Urine Protein Negative Urine Glucose (UA) Negative Urine Ketones Negative Urine Blood Negative Urine Nitrite Negative Urine Bilirubin Negative Urine Urobilinogen 0.2 Ur Leukocyte Esterase Negative RPR Titer LABS NOTED. PATIENT HAS HAD ELEVATED ALKALINE PHOSPHATASE LEVELS ON PREVIOUS ADMISSIONS. 10/20/18 15:49 Assessment: 10/20/18 15:48 WITHDRAWAL SYMPTOMS. Plan: CONTINUE DETOX. INCREASE DAILY PO WATER INTAKE.
[2018-10-20] MEDS: MELATONIN 5 MG TABLETS PO PRN (22:19)
[2018-10-20] MEDS: THIAMINE HCL 100 MG TABLET (FP) PO SCH (22:19)
[2018-10-21] MEDS: chlordiazePOXIDE HCL 25 MG CAPSULE PO SCH ×4 (05:07→22:19)
[2018-10-21] MEDS: PRENATAL VITAMINS W/ FOLIC ACID TABLET (FP) PO SCH (10:16)
--- NOTE | 2018-10-21 13:22 | PN ---
[facility] CIWA - CIWA Score Nausea/Vomitin-No Nausea/No Vomiting Muscle Tremors: 3 Anxiety: 3 Agitation: 3 Paroxysmal Sweats: 3 Orientation: 0-Oriented Tacttile Disturbances: 0-None Auditory Disturbances: 0-None Visual Disturbances: 0-None Headache: 0-None Present CIWA-Ar Total Score: 12 S Progress Note (SOAP) Subjective: sweats agitation interrupted sleep restless Objective: 10/21/18 13:21 Vital Signs Temperature 97.0 F L 10/21/18 09:18 Pulse Rate 68 10/21/18 09:18 Respiratory Rate 16 10/21/18 09:18 Blood Pressure 120/69 10/21/18 09:18 O2 Sat by Pulse Oximetry (%) Laboratory Tests 10/19/18 10/19/18 10/19/18 10:20 10:20 10:20 WBC 7.1 RBC 4.60 Hgb 14.8 Hct 43.9 MCV 95.5 MCH 32.2 MCHC 33.7 RDW 14.1 Plt Count 275 MPV 8.1 Sodium 140 Potassium 4.1 Chloride 106 Carbon Dioxide 28 Anion Gap 6 L BUN 16.8 Creatinine 1.0 Est GFR (CKD-EPI)AfAm 110.17 Est GFR (CKD-EPI)NonAf 95.05 Random Glucose 69 L Calcium 9.1 Total Bilirubin 0.3 AST 18 ALT 27 Alkaline Phosphatase 147 H Total Protein 7.2 Albumin 3.8 Urine Color Urine Appearance Urine pH Ur Specific [place] Urine Protein Urine Glucose (UA) Urine Ketones Urine Blood Urine Nitrite Urine Bilirubin Urine Urobilinogen Ur Leukocyte Esterase RPR Titer Nonreactive 10/20/18 09:25 WBC RBC Hgb Hct MCV MCH MCHC RDW Plt Count MPV Sodium Potassium Chloride Carbon Dioxide Anion Gap BUN Creatinine Est GFR (CKD-EPI)AfAm Est GFR (CKD-EPI)NonAf Random Glucose Calcium Total Bilirubin AST ALT Alkaline Phosphatase Total Protein Albumin Urine Color Yellow Urine Appearance Clear Urine pH 6.0 Ur Specific [place] 1.020 Urine Protein Negative Urine Glucose (UA) Negative Urine Ketones Negative Urine Blood Negative Urine Nitrite Negative Urine Bilirubin Negative Urine Urobilinogen 0.2 Ur Leukocyte Esterase Negative RPR Titer labs noted aaox3 ambulating no acute distress Assessment: 10/21/18 13:22 withdrawals Plan: continue detox increase fluids
[2018-10-21] MEDS: MELATONIN 5 MG TABLETS PO PRN (22:19)
[2018-10-21] MEDS: THIAMINE HCL 100 MG TABLET (FP) PO SCH (22:19)
[2018-10-22] MEDS ORDERED: chlordiazePOXIDE HCL 10 MG CAPSULE PO PRN
[2018-10-22] MEDS ORDERED: chlordiazePOXIDE HCL 10 MG CAPSULE PO SCH (05:00)
[2018-10-22 06:37] VITALS: BP 102/60; PULSE 78; TEMP 97.2
--- NOTE | 2018-10-22 12:05 | DS ---
[facility] Detox Discharge Summary Admission Date: 10/19/18 Discharge Date: 10/22/18 (Left AMA) - History Present History: Alcohol Dependence, Cannabis Dependence, Cocaine Dependence Additional Comments: Pt left AMA. Pt did not stay to complete his detox protocol. He states that he has to go and take care of his sick grandmother. Attempt to let him stay and complete his protocol failed. Pt is encouraged to follow-up with [facility] outpatient program and also to follow-up with his PMD. Pt verbalized understanding of the information given to him. Pt is alert and oriented x3 and in no respiratory distress. Pertinent Past History: H/o asthma, alcohol, cannabis, and cocaine use disorder. - Physical Exam Results Vital Signs: Vital Signs Temperature 97.2 F L 10/22/18 06:36 Pulse Rate 78 10/22/18 06:36 Respiratory Rate 16 10/22/18 06:36 Blood Pressure 102/60 10/22/18 06:36 O2 Sat by Pulse Oximetry (%) Vital Signs 10/22/18 06:36 Temperature 97.2 F L Pulse Rate 78 Respiratory 16 Rate Blood Pressure 102/60 Laboratory Last Values WBC 7.1 K/mm3 (4.0-10.0) 10/19/18 10:20 RBC 4.60 M/mm3 (4.00-5.60) 10/19/18 10:20 Hgb 14.8 GM/dL (11.7-16.9) 10/19/18 10:20 Hct 43.9 % (35.4-49) 10/19/18 10:20 MCV 95.5 fl (80-96) 10/19/18 10:20 MCH 32.2 pg (25.7-33.7) 10/19/18 10:20 MCHC 33.7 g/dl (32.0-35.9) 10/19/18 10:20 RDW 14.1 % (11.9-15.9) 10/19/18 10:20 Plt Count 275 K/MM3 (134-434) 10/19/18 10:20 MPV 8.1 fl (7.5-11.1) 10/19/18 10:20 Sodium 140 mmol/L (136-145) 10/19/18 10:20 Potassium 4.1 mmol/L (3.5-5.1) 10/19/18 10:20 Chloride 106 mmol/L (98-107) 10/19/18 10:20 Carbon Dioxide 28 mmol/L (21-32) 10/19/18 10:20 Anion Gap 6 MMOL/L (8-16) L 10/19/18 10:20 BUN 16.8 mg/dL (7-18) 10/19/18 10:20 Creatinine 1.0 mg/dL (0.55-1.3) 10/19/18 10:20 Est GFR (CKD-EPI)AfAm 110.17 10/19/18 10:20 Est GFR (CKD-EPI)NonAf 95.05 10/19/18 10:20 Random Glucose 69 mg/dL (74-106) L 10/19/18 10:20 Calcium 9.1 mg/dL (8.5-10.1) 10/19/18 10:20 Total Bilirubin 0.3 mg/dL (0.2-1) 10/19/18 10:20 AST 18 U/L (15-37) 10/19/18 10:20 ALT 27 U/L (13-61) 10/19/18 10:20 Alkaline Phosphatase 147 U/L (45-117) H 10/19/18 10:20 Total Protein 7.2 g/dl (6.4-8.2) 10/19/18 10:20 Albumin 3.8 g/dl (3.4-5.0) 10/19/18 10:20 Urine Color Yellow 10/20/18 09:25 Urine Appearance Clear 10/20/18 09:25 Urine pH 6.0 (5.0-8.0) 10/20/18 09:25 Ur Specific [place] 1.020 (1.010-1.035) 10/20/18 09:25 Urine Protein Negative (NEGATIVE) 10/20/18 09:25 Urine Glucose (UA) Negative (NEGATIVE) 10/20/18 09:25 Urine Ketones Negative (NEGATIVE) 10/20/18 09:25 Urine Blood Negative (NEGATIVE) 10/20/18 09:25 Urine Nitrite Negative (NEGATIVE) 10/20/18 09:25 Urine Bilirubin Negative (NEGATIVE) 10/20/18 09:25 Urine Urobilinogen 0.2 mg/dL (0.2-1.0) 10/20/18 09:25 Ur Leukocyte Esterase Negative (NEGATIVE) 10/20/18 09:25 RPR Titer Nonreactive (NONREACTIVE) 10/19/18 10:20 Labs noted. Pertinent Admission Physical Exam Findings: withdrawal symptoms. - Treatment Hospital Course: Detox Protocol Followed - Medication Discharge Medications: Ambulatory Orders Albuterol Sulfate Inhaler - [Ventolin HFA Inhaler -] 2 inh PO Q4H PRN #1 inhaler 07/07/18 - Diagnosis (1) Alcohol dependence with uncomplicated withdrawal Status: Acute (2) Arthritis of right knee Status: Acute (3) Clavicle fracture, shaft Status: Acute (4) Nicotine dependence Status: Acute Qualifiers: Nicotine product type: cigarettes Substance use status: in withdrawal Qualified Code(s): F17.213 - Nicotine dependence, cigarettes, with withdrawal (5) Asthma Status: Chronic Qualifiers: Asthma severity: mild Asthma persistence: intermittent Asthma complication type: uncomplicated Qualified Code(s): J45.20 - Mild intermittent asthma, uncomplicated (6) Cannabis dependence Status: Chronic (7) Cocaine dependence Status: Chronic Qualifiers: Substance use status: uncomplicated Qualified Code(s): F14.20 - Cocaine dependence, uncomplicated - AMA Did Patient Leave Against Medical Advice: Yes
[2018-10-23] MEDS ORDERED: chlordiazePOXIDE HCL 10 MG CAPSULE PO SCH (05:00)
[2018-10-24] MEDS ORDERED: chlordiazePOXIDE HCL 10 MG CAPSULE PO ONE (05:00)
== END 2018-10-22 09:37 | disposition left against medical advice (07) | DRG 770 ==
LOC: YASAS 08:41 → Y6N 10:15
PROVIDERS: ADMIT Surgery; ATTEND Surgery
PROC: HZ2ZZZZ Detoxification Services for Substance Abuse Treatment (ICD-10-PCS; principal; 2018-10-19)
DX: F10.230 Alcohol dependence with withdrawal, uncomplicated (principal); F14.20 Cocaine dependence, uncomplicated; F12.20 Cannabis dependence, uncomplicated; F17.213 Nicotine dependence, cigarettes, with withdrawal; J45.20 Mild intermittent asthma, uncomplicated; M17.11 Unilateral primary osteoarthritis, right knee; Z88.0 Allergy status to penicillin; Z91.013 Allergy to seafood
CPT/HCPCS: 36415; 80053; 81003; 85027; 86593

== ENCOUNTER 2018-12-18 12:09 | Inpatient (IN) | payer OTHER ==
[2018-12-18 13:11] VITALS: BMI 25.0
--- NOTE | 2018-12-18 15:13 | HP ---
CIWA Score Nausea/Vomitin Muscle Tremors: 2 Anxiety: 2 Agitation: 3 Paroxysmal Sweats: 1-Minimal Palms Moist Orientation: 0-Oriented Tacttile Disturbances: 1-Very Mild Itch/Numbness Auditory Disturbances: 0-None Visual Disturbances: 0-None Headache: 2-Mild CIWA-Ar Total Score: 13 - Admission Criteria OASAS Guidelines: Admission for Medically Managed Detox: Requires at least one of the followin. CIWA greater than 12 2. Seizures within the past 24 hours 3. Delirium tremens within the past 24 hours 4. Hallucinations within the past 24 hours 5. Acute intervention needed for co occurring medical disorder 6. Acute intervention needed for co occurring psychiatric disorder 7. Severe withdrawal that cannot be handled at a lower level of care (continued vomiting, continued diarrhea, abnormal vital signs) requiring intravenous medication and/or fluids 8. Admission ROS S - HPI Chief Complaint: i need help to stop drinking alcohol and drugs Allergies/Adverse Reactions: Allergies Allergy/AdvReac Type Severity Reaction Status Date / Time Penicillins Allergy Severe Difficulty Verified 12/18/18 12:54 Breathing shellfish derived Allergy Severe Difficulty Verified 12/18/18 12:54 Breathing History of Present Illness: this 38 yeas old male with alcohol,cocaine and marijuana dependence,seeking detox,withdrawal symptom, multiple admissions in detox ,last [facility] 10/19/18 to 10/22/18 nicotine dependence 10 cigarette longest period of sobriety 3 years plan for rehab Exam Limitations: No Limitations - Ebola screening Have you traveled outside of the country in the last 21 days: No (N) Have you had contact with anyone from an Ebola affected area: No Do you have a fever: No - Review of Systems Constitutional: Loss of Appetite, Night Sweats, Changes in sleep, Weakness, Unintentional Wgt. Loss EENT: reports: Nose Congestion Respiratory: reports: No Symptoms reported Cardiac: reports: No Symptoms Reported GI: reports: Nausea, Vomiting, Abdominal cramping : reports: No Symptoms Reported Musculoskeletal: reports: Back Pain, Muscle Pain Integumentary: reports: Dryness Neuro: reports: Headache, Tremors Endocrine: reports: No Symptoms Reported Hematology: reports: No Symptoms Reported Psychiatric: reports: No Sypmtoms Reported, Judgement Intact, Mood/Affect Appropiate, Orientated x3 Other Systems: Reviewed and Negative Patient History - Patient Medical History Hx Anemia: No Hx Asthma: Yes (on albuterol inhaler) Hx Chronic Obstructive Pulmonary Disease (COPD): No Hx Cancer: No Hx Cardiac Disorders: No Hx Congestive Heart Failure: No Hx Hypertension: No Hx Hypercholesterolemia: No Hx Pacemaker: No HX Cerebrovascular Accident: No Hx Seizures: No Hx Dementia: No Hx Diabetes: No Hx Gastrointestinal Disorders: No Hx Liver Disease: No Hx Genitourinary Disorders: No Hx Sexually Transmitted Disorders: No Hx Renal Disease (ESRD): No Hx Thyroid Disease: No Hx Human Immunodeficiency Virus (HIV): No (last 04/09 negative) Hx Hepatitis C: No Hx Depression: No Hx Suicide Attempt: No Hx Bipolar Disorder: No Hx Schizophrenia: No Other Medical History: no suicidal,no homicidal - Patient Surgical History Past Surgical History: No Hx Neurologic Surgery: No Hx Cataract Extraction: No Hx Cardiac Surgery: No Hx Lung Surgery: No Hx Breast Surgery: No Hx Breast Biopsy: No Hx Abdominal Surgery: No Hx Appendectomy: No Hx Cholecystectomy: No Hx Genitourinary Surgery: No Hx Section: No Hx Orthopedic Surgery: No Anesthesia Reaction: No - PPD History Previous Implant?: Yes Documented Results: Negative w/proof Implanted On Prior R Admission?: Yes Date: 04/04/18 Results: 0 mm PPD to be Administered?: No - Smoking Cessation Smoking history: Current every day smoker Have you smoked in the past 12 months: Yes Aproximately how many cigarettes per day: 10 Hx Chewing Tobacco Use: No Initiated information on smoking cessation: Yes 'Breaking Loose' booklet given: 12/18/18 - Substance & Tx. History Hx Alcohol Use: Yes Hx Substance Use: Yes Substance Use Type: Alcohol, Cocaine, Marijuana Hx Substance Use Treatment: Yes ([facility] 10/19/18 to 10/22/18) - Substances abused Alcohol Substance route: Oral Frequency: Daily Amount used: 20 cans beers ( 16 oz), Age of first use: 14 Date of last use: 12/17/18 Marijuana/Hashish Substance route: Smoking Frequency: 1-2 times per week Amount used: 3 bag Age of first use: 22 Date of last use: 12/17/18 Cocaine Substance route: Inhalation Frequency: 3-6 times per week Amount used: $20 Age of first use: 22 Date of last use: 12/17/18 Admission Physical Exam [facility] - Vital Signs Vital Signs: Vital Signs - 24 hr 12/18/18 12:50 Temperature 97.8 F Pulse Rate 80 Respiratory 20 Rate Blood Pressure 138/80 - Physical General Appearance: Yes: Moderate Distress, Tremorous, Irritable, Sweating, Anxious HEENTM: Yes: Normocephalic, OMER, Pharynx Normal Respiratory: Yes: Lungs Clear, Normal Breath Sounds, No Respiratory Distress Neck: Yes: Within Normal Limits, Supple, Trachea in good position Breast: Yes: Within Normal Limits Cardiology: Yes: Regular Rhythm, Regular Rate, S1, S2 Abdominal: Yes: Within Normal Limits, Normal Bowel Sounds, Non Tender, Soft Genitourinary: Yes: Within Normal Limits Back: Yes: Muscle Spasm Extremities: Yes: Within Normal Limits, Normal Range of Motion, Tremors, Other ( fx of left clavicle with deformity fx of right rib) 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: 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: 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, Fully Oriented, Alert, Motor Strength 5/5 Integumentary: Yes: Dry Lymphatic: Yes: Within Normal Limits - Diagnostic (1) Alcohol dependence with uncomplicated withdrawal Current Visit: No Status: Acute (2) Arthritis of right knee Current Visit: No Status: Acute (3) Clavicle fracture, shaft Current Visit: No Status: Acute (4) Fracture of one rib, right side, sequela Current Visit: No Status: Acute (5) Nicotine dependence Current Visit: No Status: Acute Qualifiers: Nicotine product type: cigarettes Substance use status: in withdrawal Qualified Code(s): F17.213 - Nicotine dependence, cigarettes, with withdrawal (6) Asthma Current Visit: No Status: Chronic Qualifiers: Asthma severity: mild Asthma persistence: intermittent Asthma complication type: uncomplicated Qualified Code(s): J45.20 - Mild intermittent asthma, uncomplicated (7) Cannabis dependence Current Visit: No Status: Chronic (8) Cocaine dependence Current Visit: No Status: Chronic Qualifiers: Substance use status: uncomplicated Qualified Code(s): F14.20 - Cocaine dependence, uncomplicated Cleared for Admission [facility] - Detox or Rehab S Level of Care: Medically Managed Detox Regimen/Protocol: Librium Breathalyzer - Breathalyzer Breathalyzer: 0 Urine Drug Screen - Test Device Lot number: [id number] Expiration date: 08/19/20 - Control Is test valid?: Yes - Results Drug screen NEGATIVE: Yes Urine drug screen results: THC-Marijuana, ETTA-Cocaine Inpatient Rehab Admission - Rehab Decision to Admit Inpatient rehab admission?: No
[2018-12-18] MEDS ORDERED: MAGNESIUM CITRATE 300 ML BOTTLE PO PRN (15:21)
[2018-12-18] MEDS ORDERED: MAG HYDROX/AL HYDROX/SIMETH 30 ML UNIT-DOSE CUP PO PRN (15:21)
[2018-12-18] MEDS ORDERED: BISMUTH SUBSALICYLATE 524 MG/30 ML UD PO PRN (15:21)
[2018-12-18] MEDS ORDERED: METHOCARBAMOL 500 MG TABLET PO PRN (15:21)
[2018-12-18] MEDS ORDERED: MAGNESIUM HYDROX 2400MG/30ML ORAL SUSPENSION 30 ML CUP PO PRN (15:21)
[2018-12-18] MEDS ORDERED: chlordiazePOXIDE HCL 25 MG CAPSULE PO PRN (15:21)
[2018-12-18] MEDS ORDERED: ACETAMINOPHEN 325 MG TABLET (FP) PO PRN ×2 (15:21)
[2018-12-18] MEDS ORDERED: hydrOXYzine PAMOATE 25 MG CAPSULE (FP) PO PRN (15:21)
[2018-12-18] MEDS ORDERED: MENTHOL/PHENOL 1 EACH UD MM PRN (15:21)
[2018-12-18] MEDS ORDERED: IBUPROFEN 400 MG TABLET (FP) PO PRN (15:21)
[2018-12-18] MEDS ORDERED: ALBUTEROL SO4 8 GM HFA INHALER IH PRN (15:23)
[2018-12-18] MEDS: chlordiazePOXIDE HCL 25 MG CAPSULE PO SCH ×2 (17:01→22:05)
[2018-12-18] MEDS: THIAMINE HCL 100 MG TABLET (FP) PO SCH (22:05)
[2018-12-18] MEDS: MELATONIN 5 MG TABLETS PO PRN (22:05)
[2018-12-19] MEDS: chlordiazePOXIDE HCL 25 MG CAPSULE PO SCH ×4 (05:37→22:07)
--- NOTE | 2018-12-19 09:26 | PN ---
[facility] CIWA - CIWA Score Nausea/Vomitin-Mild Nausea/No Vomiting Muscle Tremors: 3 Anxiety: 3 Agitation: 2 Paroxysmal Sweats: 2 Orientation: 0-Oriented Tacttile Disturbances: 1-Very Mild Itch/Numbness Auditory Disturbances: 0-None Visual Disturbances: 0-None Headache: 0-None Present CIWA-Ar Total Score: 12 [facility] Progress Note (SOAP) Subjective: doing well with librium detox regimen ate breakfast tremor sweating Objective: 12/19/18 09:26 Vital Signs Temperature 96.1 F L 12/19/18 09:03 Pulse Rate 91 H 12/19/18 09:03 Respiratory Rate 16 12/19/18 09:03 Blood Pressure 123/74 12/19/18 09:03 O2 Sat by Pulse Oximetry (%) lab pending Assessment: 12/19/18 09:26 alcohol withdrawal sx Plan: continue librium detox regimen
[2018-12-19] MEDS: PRENATAL VITAMINS W/ FOLIC ACID TABLET (FP) PO SCH (10:10)
[2018-12-19 11:42] LABS: HEMATOCRIT 43.7 % (35.4-49); HEMOGLOBIN 14.9 GM/dL (11.7-16.9); MCH 32.8 pg (25.7-33.7); MEAN CELL VOLUME 96.2 fl (80-96); PLATELET COUNT 258 K/MM3 (134-434); RBC 4.54 M/mm3 (4.00-5.60); WHITE BLOOD COUNT 5.1 K/mm3 (4.0-10.0)
[2018-12-19 12:29] LABS: ALBUMIN 3.2 g/dl (3.4-5.0); BILIRUBIN,TOTAL 0.4 mg/dL (0.2-1); BLOOD UREA NITROGEN 11.2 mg/dL (7-18); CALCIUM 8.4 mg/dL (8.5-10.1); CREATININE 0.8 mg/dL (0.55-1.3); POTASSIUM 3.5 mmol/L (3.5-5.1)
[2018-12-19 16:28] LABS: EPI CELLS 18.4 /HPF (0-5/HPF); HYALINE CASTS 44 /lpf (0-8); PH,URINE 8.5 (5.0-8.0); URINE APPEARANCE CLOUDY; URINE BACTERIA 848.6 /hpf (NEGATIVE); URINE BILIRUBIN NEGATIVE (NEGATIVE); URINE COLOR YELLOW; URINE GLUCOSE (UA) NEGATIVE (NEGATIVE); URINE KETONE NEGATIVE (NEGATIVE); URINE LEUK ESTERASE 1+ (NEGATIVE); URINE NITRITE NEGATIVE (NEGATIVE); URINE PROTEIN NEGATIVE (NEGATIVE); URINE RBC 2 /hpf (0-4); URINE WBC 55 /hpf (0-5)
[2018-12-19] MEDS: MELATONIN 5 MG TABLETS PO PRN (22:07)
[2018-12-19] MEDS: THIAMINE HCL 100 MG TABLET (FP) PO SCH (22:07)
[2018-12-20] MEDS: chlordiazePOXIDE HCL 25 MG CAPSULE PO SCH ×4 (05:35→22:06)
[2018-12-20] MEDS: PRENATAL VITAMINS W/ FOLIC ACID TABLET (FP) PO SCH (10:21)
--- NOTE | 2018-12-20 16:09 | PN ---
S CIWA - CIWA Score Nausea/Vomitin-No Nausea/No Vomiting Muscle Tremors: 3 Anxiety: 3 Agitation: 0-Normal Activity Paroxysmal Sweats: 3 Orientation: 0-Oriented Tacttile Disturbances: 0-None Auditory Disturbances: 0-None Visual Disturbances: 1-Very Mild Sensitivity Headache: 0-None Present CIWA-Ar Total Score: 10 BHS Progress Note (SOAP) Subjective: Sweating, Fatigue, Tremors. Objective: PATIENT A & O X 3. IN NO ACUTE DISTRESS. 12/20/18 16:07 Vital Signs Temperature 97.7 F 12/20/18 13:01 Pulse Rate 87 12/20/18 13:01 Respiratory Rate 18 12/20/18 13:01 Blood Pressure 126/83 12/20/18 13:01 O2 Sat by Pulse Oximetry (%) Laboratory Tests 12/19/18 12/19/18 12/19/18 08:50 08:50 08:50 WBC 5.1 RBC 4.54 Hgb 14.9 Hct 43.7 MCV 96.2 H MCH 32.8 MCHC 34.0 RDW 14.0 Plt Count 258 MPV 8.0 Sodium 139 Potassium 3.5 Chloride 104 Carbon Dioxide 27 Anion Gap 8 BUN 11.2 Creatinine 0.8 Est GFR (CKD-EPI)AfAm 130.42 Est GFR (CKD-EPI)NonAf 112.53 Random Glucose 112 H Calcium 8.4 L Total Bilirubin 0.4 AST 21 ALT 33 Alkaline Phosphatase 107 Total Protein 6.0 L Albumin 3.2 L Urine Color Urine Appearance Urine pH Ur Specific [place] Urine Protein Urine Glucose (UA) Urine Ketones Urine Blood Urine Nitrite Urine Bilirubin Urine Urobilinogen Ur Leukocyte Esterase Urine WBC (Auto) Urine RBC (Auto) Urine Casts (Auto) U Pathogenic Cast Auto U Epithel Cells (Auto) Urine Bacteria (Auto) RPR Titer Nonreactive 12/19/18 15:38 WBC RBC Hgb Hct MCV MCH MCHC RDW Plt Count MPV Sodium Potassium Chloride Carbon Dioxide Anion Gap BUN Creatinine Est GFR (CKD-EPI)AfAm Est GFR (CKD-EPI)NonAf Random Glucose Calcium Total Bilirubin AST ALT Alkaline Phosphatase Total Protein Albumin Urine Color Yellow Urine Appearance Cloudy Urine pH 8.5 H D Ur Specific [place] 1.022 Urine Protein Negative Urine Glucose (UA) Negative Urine Ketones Negative Urine Blood Negative Urine Nitrite Negative Urine Bilirubin Negative Urine Urobilinogen 1.0 Ur Leukocyte Esterase 1+ H Urine WBC (Auto) 55 Urine RBC (Auto) 2 Urine Casts (Auto) 44 U Pathogenic Cast Auto None seen U Epithel Cells (Auto) 18.4 Urine Bacteria (Auto) 848.6 RPR Titer LABS NOTED. Assessment: 12/20/18 16:08 WITHDRAWAL SYMPTOMS. Plan: CONTINUE DETOX. INCREASE DAILY PO WATER INTAKE. REPEAT UA FOR ADMISSION UA ABNORMALITIES.
[2018-12-20] MEDS: MELATONIN 5 MG TABLETS PO PRN (22:06)
[2018-12-20] MEDS: THIAMINE HCL 100 MG TABLET (FP) PO SCH (22:06)
[2018-12-21] MEDS ORDERED: chlordiazePOXIDE HCL 10 MG CAPSULE PO PRN
[2018-12-21] MEDS: chlordiazePOXIDE HCL 10 MG CAPSULE PO SCH ×3 (05:49→17:46)
[2018-12-21] MEDS: PRENATAL VITAMINS W/ FOLIC ACID TABLET (FP) PO SCH (10:28)
[2018-12-21 14:55] LABS: EPI CELLS 5.6 /HPF (0-5/HPF); HYALINE CASTS 52 /lpf (0-8); PH,URINE 6.5 (5.0-8.0); URINE APPEARANCE CLEAR; URINE BACTERIA 456.3 /hpf (NEGATIVE); URINE BILIRUBIN NEGATIVE (NEGATIVE); URINE COLOR YELLOW; URINE GLUCOSE (UA) NEGATIVE (NEGATIVE); URINE KETONE NEGATIVE (NEGATIVE); URINE LEUK ESTERASE 2+ (NEGATIVE); URINE NITRITE NEGATIVE (NEGATIVE); URINE PROTEIN NEGATIVE (NEGATIVE); URINE RBC 1 /hpf (0-4); URINE UROBILINOGEN 0.2 mg/dL (0.2-1.0); URINE WBC 34 /hpf (0-5)
--- NOTE | 2018-12-21 16:05 | PN ---
S CIWA - CIWA Score Nausea/Vomitin-No Nausea/No Vomiting Muscle Tremors: None Anxiety: 3 Agitation: 3 Paroxysmal Sweats: 2 Orientation: 0-Oriented Tacttile Disturbances: 0-None Auditory Disturbances: 0-None Visual Disturbances: 0-None Headache: 0-None Present CIWA-Ar Total Score: 8 BHS Progress Note (SOAP) Subjective: Sweating, Anxious. Patient reports That Current Withdrawal / Detox Symptoms have Subsided considerably in severity since time of admission to Detox Unit. Objective: PATIENT A & O X 3, OBSERVED AMBULATING ON DETOX UNIT UNASSISTED. IN NO ACUTE DISTRESS. 12/21/18 16:04 Vital Signs Temperature 97.2 F L 12/21/18 12:59 Pulse Rate 79 12/21/18 12:59 Respiratory Rate 18 12/21/18 12:59 Blood Pressure 123/81 12/21/18 12:59 O2 Sat by Pulse Oximetry (%) Laboratory Tests 12/19/18 12/19/18 12/19/18 08:50 08:50 08:50 WBC 5.1 RBC 4.54 Hgb 14.9 Hct 43.7 MCV 96.2 H MCH 32.8 MCHC 34.0 RDW 14.0 Plt Count 258 MPV 8.0 Sodium 139 Potassium 3.5 Chloride 104 Carbon Dioxide 27 Anion Gap 8 BUN 11.2 Creatinine 0.8 Est GFR (CKD-EPI)AfAm 130.42 Est GFR (CKD-EPI)NonAf 112.53 Random Glucose 112 H Calcium 8.4 L Total Bilirubin 0.4 AST 21 ALT 33 Alkaline Phosphatase 107 Total Protein 6.0 L Albumin 3.2 L Urine Color Urine Appearance Urine pH Ur Specific [place] Urine Protein Urine Glucose (UA) Urine Ketones Urine Blood Urine Nitrite Urine Bilirubin Urine Urobilinogen Ur Leukocyte Esterase Urine WBC (Auto) Urine RBC (Auto) Urine Casts (Auto) U Pathogenic Cast Auto U Epithel Cells (Auto) Urine Bacteria (Auto) RPR Titer Nonreactive 12/19/18 12/21/18 15:38 08:15 WBC RBC Hgb Hct MCV MCH MCHC RDW Plt Count MPV Sodium Potassium Chloride Carbon Dioxide Anion Gap BUN Creatinine Est GFR (CKD-EPI)AfAm Est GFR (CKD-EPI)NonAf Random Glucose Calcium Total Bilirubin AST ALT Alkaline Phosphatase Total Protein Albumin Urine Color Yellow Yellow Urine Appearance Cloudy Clear Urine pH 8.5 H D 6.5 D Ur Specific [place] 1.022 1.018 Urine Protein Negative Negative Urine Glucose (UA) Negative Negative Urine Ketones Negative Negative Urine Blood Negative Negative Urine Nitrite Negative Negative Urine Bilirubin Negative Negative Urine Urobilinogen 1.0 0.2 Ur Leukocyte Esterase 1+ H 2+ H Urine WBC (Auto) 55 34 Urine RBC (Auto) 2 1 Urine Casts (Auto) 44 52 U Pathogenic Cast Auto None seen U Epithel Cells (Auto) 18.4 5.6 Urine Bacteria (Auto) 848.6 456.3 RPR Titer LABS NOTED. RESULTS OF REPEAT UA NOTED. PATIENT DENIES ANY UNUSUAL URINARY COMPLAINTS (BURNING, PAIN, FREQUENCY, URGENCY , HESITANCY, VISUALIZATION OF BLOOD IN URINE). Assessment: 12/21/18 16:04 WITHDRAWAL SYMPTOMS. Plan: CONTINUE DETOX. INCREASE DAILY PO WATER INTAKE.
[2018-12-21 17:14] VITALS: BP 120/81; PULSE 99; TEMP 99.2
--- NOTE | 2018-12-21 17:16 | DS ---
[facility] Detox Discharge Summary Admission Date: 12/18/18 Discharge Date: 12/21/18 - History Present History: Alcohol Dependence Pertinent Past History: this 38 yeas old male admitted with alcohol,cocaine and marijuana dependence completed 3 days of detox- says feeling fine. Pt would like to come back for rehab. But needs to go home today. - Physical Exam Results Vital Signs: Vital Signs Temperature 99.2 F 12/21/18 17:13 Pulse Rate 99 H 12/21/18 17:13 Respiratory Rate 18 12/21/18 17:13 Blood Pressure 120/81 12/21/18 17:13 O2 Sat by Pulse Oximetry (%) - Treatment Hospital Course: Detox Protocol Followed, Detoxed Safely, Responded well, Discharged Condition Good, Rehab Referral Accepted - Medication Discharge Medications: Ambulatory Orders Albuterol Sulfate Inhaler - [Ventolin HFA Inhaler -] 2 inh PO Q4H PRN #1 inhaler 07/07/18
[2018-12-22] MEDS ORDERED: chlordiazePOXIDE HCL 10 MG CAPSULE PO SCH (05:00)
[2018-12-23] MEDS ORDERED: chlordiazePOXIDE HCL 10 MG CAPSULE PO ONE (05:00)
== END 2018-12-21 18:30 | disposition home or self-care (01) | DRG 774 ==
LOC: YASAS 12:09 → Y3N 16:19
PROVIDERS: ADMIT Surgery; ATTEND Surgery
PROC: HZ2ZZZZ Detoxification Services for Substance Abuse Treatment (ICD-10-PCS; principal; 2018-12-18)
DX: F10.230 Alcohol dependence with withdrawal, uncomplicated (principal); F14.20 Cocaine dependence, uncomplicated; F12.20 Cannabis dependence, uncomplicated; F17.210 Nicotine dependence, cigarettes, uncomplicated; J45.20 Mild intermittent asthma, uncomplicated; M17.11 Unilateral primary osteoarthritis, right knee; Z88.0 Allergy status to penicillin; Z91.013 Allergy to seafood
CPT/HCPCS: 36415; 80053; 81003; 85027; 86593

== ENCOUNTER 2019-12-01 08:49 | Inpatient (IN) | payer OTHER ==
--- NOTE | 2019-12-01 09:24 | BHS.RME ---
Substance Use & Tx History - Substance Use History Alcohol Substance amount: 2 six pack beers Frequency of use: Daily Substance route: Oral Date of Last Use: 12/01/19 (started age 17) Marijuana/Hashish Substance amount: 1 joint Frequency of use: Less than 3 times per week Substance route: Smoking Date of Last Use: 11/29/19 (started age 19) Nicotine Substance amount: 1/2 pack Frequency of use: Daily Substance route: Smoking Date of Last Use: 12/01/19 (started age 17) Physical/Psych/Mental Status - Behavior General Behavior: Increased activity (restlessness, agitation) Eye Contact: Normal - Cooperativeness Cooperativeness: Cooperative - Thinking Thought Processes: Tight, Logical, Goal Directed - Physical Health Problems Is patient presently having any pain?: No Does patient presently have any injuries (include location): No Does patient currently have a fever: No Is patient : No CIWA Nausea/Vomitin Muscle Tremors: 7-Severe,w/o Arm Extended Anxiety: 3 Agitation: 3 Paroxysmal Sweats: 1-Minimal Palms Moist Orientation: 0-Oriented Tacttile Disturbances: 0-None Auditory Disturbances: 0-None Visual Disturbances: 1-Very Mild Sensitivity Headache: 0-None Present CIWA-Ar Total Score: 18
[2019-12-01 09:44] VITALS: BMI 25.7
--- NOTE | 2019-12-01 10:09 | HP ---
CIWA Score Nausea/Vomitin Muscle Tremors: 7-Severe,w/o Arm Extended Anxiety: 3 Agitation: 3 Paroxysmal Sweats: 1-Minimal Palms Moist Orientation: 0-Oriented Tacttile Disturbances: 0-None Auditory Disturbances: 0-None Visual Disturbances: 1-Very Mild Sensitivity Headache: 0-None Present CIWA-Ar Total Score: 18 - Admission Criteria [facility]ASAS Guidelines: Admission for Medically Managed Detox: Requires at least one of the followin. CIWA greater than 12 2. Seizures within the past 24 hours 3. Delirium tremens within the past 24 hours 4. Hallucinations within the past 24 hours 5. Acute intervention needed for co occurring medical disorder 6. Acute intervention needed for co occurring psychiatric disorder 7. Severe withdrawal that cannot be handled at a lower level of care (continued vomiting, continued diarrhea, abnormal vital signs) requiring intravenous medication and/or fluids 8. Admitting History and Physical - Admission History of Present Illness: 39 y.o. M PMHx bronchitis presenting to [facility] for detox. Patient was examined in the room and is in no acute distress. 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 Cocaine intranasal 20$ weekly. Marijuana 1 joint a day and 1/2 pack cigarettes a day. - Substance Use History Alcohol Substance amount: 2 six pack beers Frequency of use: Daily Substance route: Oral Date of Last Use: 12/01/19 (started age 17) Marijuana/Hashish Substance amount: 1 joint Frequency of use: Less than 3 times per week Substance route: Smoking Date of Last Use: 11/29/19 (started age 19) Nicotine Substance amount: 1/2 pack Frequency of use: Daily Substance route: Smoking Date of Last Use: 12/01/19 (started age 17) History Source: Patient Limitations to Obtaining History: No Limitations - Past Medical History [employer]: No: Seizure Cardiovascular: No: HTN, Hyperlipdemia Pulmonary: No: Pneumonia, Pulmonary Embolus Gastrointestinal: No: GERD, GI Bleed Hepatobiliary: No: Hepatitis A, Hepatitis B, Hepatitis C Infectious Disease: No: HIV, STD's, Tuberculosis - Past Surgical History Past Surgical History: Yes: None - Smoking History Smoking history: Current every day smoker Have you smoked in the past 12 months: Yes Aproximately how many cigarettes per day: 10 - Alcohol/Substance Use Hx Alcohol Use: Yes History of Substance Use: reports: Cocaine, Marijuana - Social History Usual Living Arrangement: Yes: Other (Prison) ADL: Independent Occupation: unemployed History of Recent Travel: No Admission [facility] Allergies/Adverse Reactions: Allergies Allergy/AdvReac Type Severity Reaction Status Date / Time Penicillins Allergy Severe Difficulty Verified 12/01/19 09:43 Breathing shellfish derived Allergy Severe Difficulty Verified 12/01/19 09:43 Breathing History of Present Illness: 39 y.o. M PMHx bronchitis presenting to [facility] for detox. Patient was examined in the room and is in no acute distress. 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 Cocaine intranasal 20$ weekly. Marijuana 1 joint a day and 1/2 pack cigarettes a day. - Substance Use History Alcohol Substance amount: 2 six pack beers Frequency of use: Daily Substance route: Oral Date of Last Use: 12/01/19 (started age 17) Marijuana/Hashish Substance amount: 1 joint Frequency of use: Less than 3 times per week Substance route: Smoking Date of Last Use: 11/29/19 (started age 19) Nicotine Substance amount: 1/2 pack Frequency of use: Daily Substance route: Smoking Date of Last Use: 12/01/19 (started age 17) Exam Limitations: No Limitations - Ebola screening Have you traveled outside of the country in the last 21 days: No Have you had contact with anyone from an Ebola affected area: No Have you been sick,other than usual withdrawal symptoms: No Do you have a fever: No - Review of Systems Constitutional: No Symptoms Reported Respiratory: reports: No Symptoms reported. denies: Cough, Shortness of Breath Cardiac: reports: No Symptoms Reported. denies: Chest Pain, Lightheadedness GI: reports: No Symptoms Reported, Nausea. denies: Constipated, Diarrhea, Vomiting : reports: No Symptoms Reported. denies: Burning, Dysuria Musculoskeletal: reports: No Symptoms Reported. denies: Muscle Pain, Muscle Weakness Neuro: reports: No Symptoms reported. denies: Headache, Dizziness Hematology: reports: No Symptoms Reported. denies: Easy Bleeding Psychiatric: reports: No Sypmtoms Reported, Judgement Intact, Mood/Affect Appropiate, Orientated x3 Patient History - Patient Medical History Hx Anemia: No Hx Asthma: Yes Hx Chronic Obstructive Pulmonary Disease (COPD): No Hx Cancer: No Hx Cardiac Disorders: No Hx Congestive Heart Failure: No Hx Hypertension: No Hx Hypercholesterolemia: No Hx Pacemaker: No HX Cerebrovascular Accident: No Hx Seizures: No Hx Dementia: No Hx Diabetes: No Hx Gastrointestinal Disorders: No Hx Liver Disease: No Hx Genitourinary Disorders: No Hx Sexually Transmitted Disorders: No Hx Renal Disease (ESRD): No Hx Thyroid Disease: No Hx Human Immunodeficiency Virus (HIV): No (last 04/09 negative) Hx Hepatitis C: No Hx Depression: No Hx Suicide Attempt: No Hx Bipolar Disorder: No Hx Schizophrenia: No - Patient Surgical History Past Surgical History: No Hx Neurologic Surgery: No Hx Cataract Extraction: No Hx Cardiac Surgery: No Hx Lung Surgery: No Hx Breast Surgery: No Hx Breast Biopsy: No Hx Abdominal Surgery: No Hx Appendectomy: No Hx Cholecystectomy: No Hx Genitourinary Surgery: No Hx Section: No Hx Orthopedic Surgery: No Anesthesia Reaction: No - PPD History Previous Implant?: Yes Documented Results: Negative w/proof Implanted On Prior [facility] Admission?: Yes Date: 10/22/19 Results: 0 mm - Smoking Cessation Smoking history: Current every day smoker Have you smoked in the past 12 months: Yes Aproximately how many cigarettes per day: 10 Hx Chewing Tobacco Use: No Initiated information on smoking cessation: Yes 'Breaking Loose' booklet given: 12/01/19 - Substances abused Alcohol Substance route: Oral Frequency: Daily Amount used: 2 6pks beer Age of first use: 17 Date of last use: 12/01/19 Marijuana/Hashish Substance route: Smoking Frequency: Daily Amount used: 1 joint Age of first use: 19 Date of last use: 11/29/19 Cocaine Substance route: Inhalation Frequency: 1-3 times last 30 days Amount used: $20 Age of first use: 22 Date of last use: 11/29/19 Admission Physical Exam BHS - Vital Signs Vital Signs: Vital Signs - 24 hr 12/01/19 09:31 Temperature 97.3 F L Pulse Rate 64 Respiratory 18 Rate Blood Pressure 132/91 - Physical General Appearance: Yes: Within Normal Limits, No Apparent Distress, Nourished, Appropriately Dressed Respiratory: Yes: Within Normal Limits, Lungs Clear, Decreased Breath Sounds, No Respiratory Distress, No Accessory Muscle Use Cardiology: Yes: Within Normal Limits, Regular Rhythm, Regular Rate Abdominal: Yes: Within Normal Limits, Normal Bowel Sounds, Non Tender, Flat, Soft. No: Tenderness Back: Yes: Within Normal Limits, Normal Inspection. No: CVA Tenderness Musculoskeletal: Yes: Within Normal Limits, full range of Motion, Gait Steady Extremities: Yes: Within Normal Limits, Normal Inspection, Non-Tender. No: Calf Tenderness 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: Yes: Within Normal Limits, Fully Oriented, Alert, Normal Mood/Affect, Normal Response. No: Numbness Integumentary: Yes: Within Normal Limits, Normal Color, Warm. No: Cold, Pitting Edema - Diagnostic (1) Alcohol dependence with uncomplicated withdrawal Current Visit: No Status: Acute (2) Nicotine dependence Current Visit: No Status: Acute Qualifiers: Nicotine product type: cigarettes Substance use status: in withdrawal Qualified Code(s): F17.213 - Nicotine dependence, cigarettes, with withdrawal (3) Weight loss Current Visit: No Status: Acute (4) Cannabis dependence Current Visit: No Status: Chronic (5) Cocaine dependence Current Visit: No Status: Chronic Qualifiers: Substance use status: uncomplicated Qualified Code(s): F14.20 - Cocaine dependence, uncomplicated Cleared for Admission S - Detox or Rehab [facility] Level of Care: Medically Managed Detox Regimen/Protocol: Librium Breathalyzer - Breathalyzer Breathalyzer: 0.050 Vital Signs - Vital Signs Vital signs refused: Yes Temperature: 97.3 F Pulse Rate: 64 Respiratory Rate: 16 Blood Pressure: 132/91 - Height Height: 1.7 m - Weight Weight: 74.389 kg - BMI Body Mass Index (BMI): 25.7 Urine Drug Screen - Test Device Lot number: [id number] Expiration date: 06/27/21 - Control Is test valid?: Yes - Results Drug screen NEGATIVE: No Urine drug screen results: THC-Marijuana, ETTA-Cocaine, BZO-Benzodiazepines Inpatient Rehab Admission - Rehab Decision to Admit Inpatient rehab admission?: No
[2019-12-01] MEDS ORDERED: MAGNESIUM CITRATE 300 ML BOTTLE PO PRN (10:15)
[2019-12-01] MEDS ORDERED: ONDANSETRON *ODT* 4 MG TABLET SL PRN (10:15)
[2019-12-01] MEDS ORDERED: MAGNESIUM HYDROX 2400MG/30ML ORAL SUSPENSION 30 ML CUP PO PRN (10:15)
[2019-12-01] MEDS ORDERED: BISMUTH SUBSALICYLATE 524 MG/30 ML UD PO PRN (10:15)
[2019-12-01] MEDS ORDERED: IBUPROFEN 400 MG TABLET (FP) PO PRN (10:15)
[2019-12-01] MEDS ORDERED: MENTHOL/PHENOL 1 EACH UD MM PRN (10:15)
[2019-12-01] MEDS ORDERED: NICOTINE POLACRILEX 2 MG GUM BUC PRN (10:15)
[2019-12-01] MEDS ORDERED: MAG HYDROX/AL HYDROX/SIMETH 30 ML UNIT-DOSE CUP PO PRN (10:15)
[2019-12-01] MEDS ORDERED: chlordiazePOXIDE HCL 25 MG CAPSULE PO PRN (10:15)
[2019-12-01] MEDS ORDERED: METHOCARBAMOL 500 MG TABLET PO PRN (10:15)
[2019-12-01] MEDS ORDERED: ACETAMINOPHEN 325 MG TABLET (FP) PO PRN ×2 (10:15)
[2019-12-01] MEDS ORDERED: ALBUTEROL SO4 HFA INHALER IH PRN (10:17)
[2019-12-01] MEDS: chlordiazePOXIDE HCL 25 MG CAPSULE PO SCH ×3 (11:53→22:18)
[2019-12-01] MEDS: hydrOXYzine PAMOATE 25 MG CAPSULE (FP) PO SCH ×3 (14:20→22:18)
[2019-12-01 14:54] LABS: HEMATOCRIT 44.5 % (35.4-49); HEMOGLOBIN 15.1 GM/dL (11.7-16.9); MCH 33.1 pg (25.7-33.7); MCHC 33.9 g/dl (32.0-35.9); MEAN CELL VOLUME 97.5 fl (80-96); MEAN PLT VOLUME 8.1 fl (7.5-11.1); PLATELET COUNT 234 K/MM3 (134-434); RBC 4.57 M/mm3 (4.00-5.60); WHITE BLOOD COUNT 4.4 K/mm3 (4.0-10.0)
[2019-12-01 15:06] LABS: ALBUMIN 3.6 g/dl (3.4-5.0); BILIRUBIN,TOTAL 0.4 mg/dL (0.2-1); BLOOD UREA NITROGEN 9.3 mg/dL (7-18); CALCIUM 8.9 mg/dL (8.5-10.1); TOT PROT 6.9 g/dl (6.4-8.2)
[2019-12-01] MEDS: MELATONIN 5 MG TABLETS PO SCH (22:18)
[2019-12-01] MEDS: THIAMINE HCL 100 MG TABLET (FP) PO SCH (22:18)
[2019-12-02] MEDS: hydrOXYzine PAMOATE 25 MG CAPSULE (FP) PO SCH ×4 (05:49→23:27)
[2019-12-02] MEDS: chlordiazePOXIDE HCL 25 MG CAPSULE PO SCH ×4 (05:49→23:26)
[2019-12-02] MEDS: PRENATAL VITAMINS W/ FOLIC ACID TABLET (FP) PO SCH (10:55)
[2019-12-02] MEDS: NICOTINE 7 MG/24 HOURS TOPICAL PATCH TD SCH (10:57)
--- NOTE | 2019-12-02 11:44 | PN ---
S CIWA - CIWA Score Nausea/Vomitin-No Nausea/No Vomiting Muscle Tremors: 2 Anxiety: 3 Agitation: 0-Normal Activity Paroxysmal Sweats: 3 Orientation: 0-Oriented Tacttile Disturbances: 0-None Auditory Disturbances: 0-None Visual Disturbances: 0-None Headache: 2-Mild CIWA-Ar Total Score: 10 BHS Progress Note (SOAP) Subjective: c/o anxiety, headache, shakes, and sweats. Objective: 12/02/19 11:43 Vital Signs 12/02/19 12/02/19 08:16 08:50 Temperature 97.6 F 97.3 F L Pulse Rate 61 72 Respiratory 20 18 Rate Blood Pressure 118/63 120/72 O2 Sat by Pulse 93 L Oximetry (%) Laboratory Last Values WBC 4.4 K/mm3 (4.0-10.0) 12/01/19 10:10 RBC 4.57 M/mm3 (4.00-5.60) 12/01/19 10:10 Hgb 15.1 GM/dL (11.7-16.9) 12/01/19 10:10 Hct 44.5 % (35.4-49) 12/01/19 10:10 MCV 97.5 fl (80-96) H 12/01/19 10:10 MCH 33.1 pg (25.7-33.7) 12/01/19 10:10 MCHC 33.9 g/dl (32.0-35.9) 12/01/19 10:10 RDW 14.0 % (11.9-15.9) 12/01/19 10:10 Plt Count 234 K/MM3 (134-434) 12/01/19 10:10 MPV 8.1 fl (7.5-11.1) 12/01/19 10:10 Sodium 141 mmol/L (136-145) 12/01/19 10:10 Potassium 4.0 mmol/L (3.5-5.1) 12/01/19 10:10 Chloride 105 mmol/L (98-107) 12/01/19 10:10 Carbon Dioxide 29 mmol/L (21-32) 12/01/19 10:10 Anion Gap 7 MMOL/L (8-16) L 12/01/19 10:10 BUN 9.3 mg/dL (7-18) 12/01/19 10:10 Creatinine 1.0 mg/dL (0.55-1.3) 12/01/19 10:10 Est GFR (CKD-EPI)AfAm 108.63 12/01/19 10:10 Est GFR (CKD-EPI)NonAf 93.73 12/01/19 10:10 Random Glucose 124 mg/dL (74-106) H 12/01/19 10:10 Calcium 8.9 mg/dL (8.5-10.1) 12/01/19 10:10 Total Bilirubin 0.4 mg/dL (0.2-1) 12/01/19 10:10 AST 38 U/L (15-37) H 12/01/19 10:10 ALT 32 U/L (13-61) 12/01/19 10:10 Alkaline Phosphatase 104 U/L (45-117) 12/01/19 10:10 Total Protein 6.9 g/dl (6.4-8.2) 12/01/19 10:10 Albumin 3.6 g/dl (3.4-5.0) 12/01/19 10:10 Syphilis Serology Non-reactive (NONREACTIVE) 12/01/19 10:10 COVID-19 ([facility]) Not detected (Not Detected) 12/01/19 10:25 Labs noted. Assessment: AOX3, in no acute respiratory distress. Full ROM, ambulating in the unit. Withdrawal symptoms. Plan: continue detox.
[2019-12-02] MEDS: MELATONIN 5 MG TABLETS PO SCH (23:27)
[2019-12-02] MEDS: THIAMINE HCL 100 MG TABLET (FP) PO SCH (23:27)
[2019-12-03] MEDS: hydrOXYzine PAMOATE 25 MG CAPSULE (FP) PO SCH ×5 (05:43→23:55)
[2019-12-03] MEDS: chlordiazePOXIDE HCL 25 MG CAPSULE PO SCH ×4 (05:43→23:56)
[2019-12-03] MEDS: PRENATAL VITAMINS W/ FOLIC ACID TABLET (FP) PO SCH (10:27)
[2019-12-03] MEDS: NICOTINE 7 MG/24 HOURS TOPICAL PATCH TD SCH (10:27)
--- NOTE | 2019-12-03 13:28 | PN ---
S CIWA - CIWA Score Nausea/Vomitin-Mild Nausea/No Vomiting Muscle Tremors: 2 Anxiety: 2 Agitation: 1-Slight > Activity Paroxysmal Sweats: 1-Minimal Palms Moist Orientation: 0-Oriented Tacttile Disturbances: 0-None Auditory Disturbances: 0-None Visual Disturbances: 1-Very Mild Sensitivity Headache: 1-Very Mild CIWA-Ar Total Score: 9 BHS Progress Note (SOAP) Subjective: 39 years old male was admitted on 12/01/19 for alcohol withdrawal sx management treating with librium detox regiment feels tired prefers to sleep in bed today limited conversation with staff Objective: 12/03/19 13:27 Vital Signs - 24 hr 12/02/19 12/02/19 12/03/19 16:56 21:05 05:37 Temperature 97.1 F L 96.9 F L 97.3 F L Pulse Rate 84 80 73 Respiratory 18 18 18 Rate Blood Pressure 120/85 130/76 93/55 L O2 Sat by Pulse 97 99 Oximetry (%) 12/03/19 08:35 Temperature 96.8 F L Pulse Rate 70 Respiratory 18 Rate Blood Pressure 121/79 O2 Sat by Pulse Oximetry (%) Laboratory Tests 12/01/19 12/01/19 12/01/19 10:10 10:10 10:10 WBC 4.4 RBC 4.57 Hgb 15.1 Hct 44.5 MCV 97.5 H MCH 33.1 MCHC 33.9 RDW 14.0 Plt Count 234 MPV 8.1 Sodium 141 Potassium 4.0 Chloride 105 Carbon Dioxide 29 Anion Gap 7 L BUN 9.3 Creatinine 1.0 Est GFR (CKD-EPI)AfAm 108.63 Est GFR (CKD-EPI)NonAf 93.73 Random Glucose 124 H Calcium 8.9 Total Bilirubin 0.4 AST 38 H ALT 32 Alkaline Phosphatase 104 Total Protein 6.9 Albumin 3.6 Syphilis Serology Non-reactive COVID-19 ([facility]) 12/01/19 10:25 WBC RBC Hgb Hct MCV MCH MCHC RDW Plt Count MPV Sodium Potassium Chloride Carbon Dioxide Anion Gap BUN Creatinine Est GFR (CKD-EPI)AfAm Est GFR (CKD-EPI)NonAf Random Glucose Calcium Total Bilirubin AST ALT Alkaline Phosphatase Total Protein Albumin Syphilis Serology COVID-19 ([facility]) Not detected 12/03/19 13:29 fasting glucose pending Assessment: 12/03/19 13:29 alcohol withdrawal Plan: librium regiment
[2019-12-03] MEDS: MELATONIN 5 MG TABLETS PO SCH (23:56)
[2019-12-03] MEDS: THIAMINE HCL 100 MG TABLET (FP) PO SCH (23:56)
[2019-12-04] MEDS ORDERED: chlordiazePOXIDE HCL 10 MG CAPSULE PO PRN
[2019-12-04] MEDS: chlordiazePOXIDE HCL 10 MG CAPSULE PO SCH ×2 (05:33→10:09)
[2019-12-04] MEDS: hydrOXYzine PAMOATE 25 MG CAPSULE (FP) PO SCH ×2 (06:44→10:09)
[2019-12-04 09:49] VITALS: BP 113/78; PULSE 86; TEMP 97.1
[2019-12-04] MEDS: NICOTINE 7 MG/24 HOURS TOPICAL PATCH TD SCH (10:09)
[2019-12-04] MEDS: PRENATAL VITAMINS W/ FOLIC ACID TABLET (FP) PO SCH (10:09)
--- NOTE | 2019-12-04 12:03 | DS ---
[facility] Detox Discharge Summary Admission Date: 12/01/19 Discharge Date: 12/04/19 - History Present History: Sedative Dependence Additional Comments: 39 years old male was admitted on 12/01/19 for alcohol withdrawal sx management treated with librium detox regiment mr reid prefers to go home and get some clothing from home before ready willing and able admission mr reid is alert oriented x 3 ambulating steady gaits Pertinent Past History: time for discharge 46 minutes treatment team met with mr reid to discuss benefits of librium regiment completion mr reid insists to leave the detox unit today and prepared himself for aftercare admission mr reid determines to maintain sober through continuity of aftercare - Physical Exam Results Vital Signs: Vital Signs Temperature 97.1 F L 12/04/19 08:34 Pulse Rate 86 12/04/19 08:34 Respiratory Rate 18 12/04/19 08:34 Blood Pressure 113/78 12/04/19 08:34 O2 Sat by Pulse Oximetry (%) 97 12/04/19 06:15 Pertinent Admission Physical Exam Findings: alcohol withdrawal Vital Signs - 24 hr 12/03/19 12/03/19 12/04/19 17:01 21:00 06:15 Temperature 97.1 F L 97.5 F L 97.3 F L Pulse Rate 100 H 105 H 52 L Respiratory 18 20 18 Rate Blood Pressure 132/85 140/92 116/67 O2 Sat by Pulse 98 97 Oximetry (%) 12/04/19 08:34 Temperature 97.1 F L Pulse Rate 86 Respiratory 18 Rate Blood Pressure 113/78 O2 Sat by Pulse Oximetry (%) Laboratory Tests 12/01/19 12/01/19 12/01/19 10:10 10:10 10:10 WBC 4.4 RBC 4.57 Hgb 15.1 Hct 44.5 MCV 97.5 H MCH 33.1 MCHC 33.9 RDW 14.0 Plt Count 234 MPV 8.1 Sodium 141 Potassium 4.0 Chloride 105 Carbon Dioxide 29 Anion Gap 7 L BUN 9.3 Creatinine 1.0 Est GFR (CKD-EPI)AfAm 108.63 Est GFR (CKD-EPI)NonAf 93.73 Random Glucose 124 H Calcium 8.9 Total Bilirubin 0.4 AST 38 H ALT 32 Alkaline Phosphatase 104 Total Protein 6.9 Albumin 3.6 Syphilis Serology Non-reactive COVID-19 ([facility]) 12/01/19 10:25 WBC RBC Hgb Hct MCV MCH MCHC RDW Plt Count MPV Sodium Potassium Chloride Carbon Dioxide Anion Gap BUN Creatinine Est GFR (CKD-EPI)AfAm Est GFR (CKD-EPI)NonAf Random Glucose Calcium Total Bilirubin AST ALT Alkaline Phosphatase Total Protein Albumin Syphilis Serology COVID-19 ([facility]) Not detected fasting glucose cancelled - Treatment Hospital Course: Detox Protocol Followed, Detoxed Safely, Responded well, Discharged Condition Good, Rehab Referral Accepted Patient has Accepted a Rehab Referral to: ready willing and able - Medication Discharge Medications: Ambulatory Orders Albuterol Sulfate Inhaler - [Ventolin HFA Inhaler -] 2 inh PO Q4H PRN #1 inhaler 07/07/18 - Diagnosis (1) Alcohol dependence with uncomplicated withdrawal Status: Acute (2) Hyperglycemia Status: Chronic (3) Nicotine dependence Status: Acute Qualifiers: Nicotine product type: cigarettes Substance use status: in withdrawal Qualified Code(s): F17.213 - Nicotine dependence, cigarettes, with withdrawal (4) Asthma Status: Chronic Qualifiers: Asthma severity: mild Asthma persistence: intermittent Asthma complication type: uncomplicated Qualified Code(s): J45.20 - Mild intermittent asthma, uncomplicated (5) Use of cane as ambulatory aid Status: Chronic - AMA Did Patient Leave Against Medical Advice: No CIWA Score - CIWA Score Nausea/Vomitin-No Nausea/No Vomiting Muscle Tremors: 1-None Visible, but [place] Anxiety: 1-Mildly Anxious Agitation: 1-Slight > Activity Paroxysmal Sweats: No Perspiration Orientation: 0-Oriented Tacttile Disturbances: 0-None Auditory Disturbances: 0-None Visual Disturbances: 1-Very Mild Sensitivity Headache: 1-Very Mild CIWA-Ar Total Score: 5
[2019-12-05] MEDS ORDERED: chlordiazePOXIDE HCL 10 MG CAPSULE PO SCH (05:00)
[2019-12-06] MEDS ORDERED: chlordiazePOXIDE HCL 10 MG CAPSULE PO ONE (05:00)
== END 2019-12-04 13:10 | disposition home or self-care (01) | DRG 774 ==
LOC: YASAS 08:49 → Y3N 09:49
PROVIDERS: ADMIT Allergy & Immunology; ATTEND Allergy & Immunology
PROC: HZ2ZZZZ Detoxification Services for Substance Abuse Treatment (ICD-10-PCS; principal; 2019-12-01)
DX: F10.230 Alcohol dependence with withdrawal, uncomplicated (principal); F14.10 Cocaine abuse, uncomplicated; F12.10 Cannabis abuse, uncomplicated; F17.210 Nicotine dependence, cigarettes, uncomplicated; J45.20 Mild intermittent asthma, uncomplicated; R73.9 Hyperglycemia, unspecified; R63.4 Abnormal weight loss; Z68.25 Body mass index [BMI] 25.0-25.9, adult; Z99.89 Dependence on other enabling machines and devices; Z88.0 Allergy status to penicillin; Z91.013 Allergy to seafood
CPT/HCPCS: 36415; 80053; 85027; 86780; U0003

== ENCOUNTER 2020-10-09 10:12 | Inpatient (IN) | payer OTHER ==
[2020-10-09 12:01] VITALS: BMI 23.5
[2020-10-09] MEDS ORDERED: MENTHOL/PHENOL 1 EACH UD MM PRN (13:37)
[2020-10-09] MEDS ORDERED: LORazepam 1 MG TABLET PO PRN (13:37)
[2020-10-09] MEDS ORDERED: ACETAMINOPHEN 325 MG TABLET (FP) PO PRN ×2 (13:37)
[2020-10-09] MEDS ORDERED: METHOCARBAMOL 500 MG TABLET PO PRN (13:37)
[2020-10-09] MEDS ORDERED: IBUPROFEN 400 MG TABLET (FP) PO PRN (13:37)
[2020-10-09] MEDS ORDERED: NICOTINE POLACRILEX 2 MG GUM BUC PRN (13:37)
[2020-10-09] MEDS ORDERED: MAG HYDROX/AL HYDROX/SIMETH 30 ML UNIT-DOSE CUP PO PRN (13:37)
[2020-10-09] MEDS ORDERED: BISMUTH SUBSALICYLATE 524 MG/30 ML PO PRN (13:37)
[2020-10-09] MEDS ORDERED: MAGNESIUM CITRATE 300 ML BOTTLE PO PRN (13:37)
[2020-10-09] MEDS ORDERED: MAGNESIUM HYDROX 2400MG/30ML ORAL SUSPENSION 30 ML CUP PO PRN (13:37)
[2020-10-09] MEDS ORDERED: ONDANSETRON *ODT* 4 MG TABLET SL PRN (13:37)
[2020-10-09] MEDS: NICOTINE 14 MG/24 HOURS TOPICAL PATCH TD SCH (15:41)
[2020-10-09] MEDS: hydrOXYzine PAMOATE 25 MG CAPSULE (FP) PO SCH ×3 (15:41→23:12)
[2020-10-09] MEDS: LORazepam 2 MG TABLET PO SCH ×2 (17:41→23:12)
[2020-10-09 18:22] LABS: HEMATOCRIT 43.3 % (35.4-49); HEMOGLOBIN 14.8 GM/dL (11.7-16.9); MCH 33.6 pg (25.7-33.7); MCHC 34.3 g/dl (32.0-35.9); MEAN CELL VOLUME 97.9 fl (80-96); MEAN PLT VOLUME 7.8 fl (7.5-11.1); PLATELET COUNT 241 10^3/uL (134-434); RBC 4.42 M/mm3 (4.00-5.60); RDW 13.2 % (11.9-15.9); WHITE BLOOD COUNT 5.3 K/mm3 (4.0-10.0)
[2020-10-09 18:27] LABS: ALBUMIN 3.8 g/dl (3.4-5.0); BLOOD UREA NITROGEN 18.8 mg/dL (7-18); CALCIUM 8.8 mg/dL (8.5-10.1)
[2020-10-09 18:29] LABS: CREATININE 1.1 mg/dL (0.55-1.3)
[2020-10-09 18:31] LABS: BILIRUBIN,TOTAL 0.4 mg/dL (0.2-1); TOT PROT 6.9 g/dl (6.4-8.2)
[2020-10-09] MEDS: THIAMINE HCL 100 MG TABLET (FP) PO SCH (23:12)
[2020-10-09] MEDS: MELATONIN 5 MG TABLETS PO SCH (23:12)
[2020-10-10] MEDS: hydrOXYzine PAMOATE 25 MG CAPSULE (FP) PO SCH (06:00)
[2020-10-10] MEDS: LORazepam 2 MG TABLET PO SCH (06:00)
[2020-10-10] MEDS ORDERED: ALBUTEROL SO4 HFA INHALER IH PRN (09:39)
[2020-10-10] MEDS: PRENATAL VITAMINS W/ FOLIC ACID TABLET (FP) PO SCH (10:17)
[2020-10-10] MEDS: NICOTINE 14 MG/24 HOURS TOPICAL PATCH TD SCH (10:18)
[2020-10-10] MEDS: LORazepam 0.5 MG TABLET PO SCH ×3 (17:50→22:27)
[2020-10-10] MEDS: MELATONIN 5 MG TABLETS PO SCH (22:26)
[2020-10-10] MEDS: THIAMINE HCL 100 MG TABLET (FP) PO SCH (22:26)
[2020-10-11] MEDS ORDERED: LORazepam 1 MG TABLET PO SCH (05:00)
[2020-10-11] MEDS: LORazepam 0.5 MG TABLET PO SCH ×3 (05:47→22:01)
[2020-10-11] MEDS: PRENATAL VITAMINS W/ FOLIC ACID TABLET (FP) PO SCH (10:04)
[2020-10-11] MEDS: NICOTINE 14 MG/24 HOURS TOPICAL PATCH TD SCH (10:04)
[2020-10-11] MEDS: THIAMINE HCL 100 MG TABLET (FP) PO SCH (22:01)
[2020-10-11] MEDS: MELATONIN 5 MG TABLETS PO SCH (22:02)
[2020-10-12] MEDS ORDERED: LORazepam 0.5 MG TABLET PO PRN
[2020-10-12] MEDS ORDERED: LORazepam 0.5 MG TABLET PO SCH (05:00)
[2020-10-12] MEDS: LORazepam 0.5 MG TABLET PO SCH ×2 (05:59→17:42)
[2020-10-12] MEDS: PRENATAL VITAMINS W/ FOLIC ACID TABLET (FP) PO SCH (10:02)
[2020-10-12] MEDS: NICOTINE 14 MG/24 HOURS TOPICAL PATCH TD SCH (10:02)
[2020-10-12] MEDS: THIAMINE HCL 100 MG TABLET (FP) PO SCH (22:11)
[2020-10-12] MEDS: MELATONIN 5 MG TABLETS PO SCH (22:12)
[2020-10-13] MEDS ORDERED: LORazepam 0.5 MG TABLET PO ONE (05:00)
[2020-10-13 07:28] VITALS: BP 113/63; PULSE 78; TEMP 97.8
== END 2020-10-13 09:40 | disposition home or self-care (01) | DRG 773 ==
LOC: YASAS 10:12 → Y6N 14:12
PROVIDERS: ADMIT Allergy & Immunology; ATTEND Allergy & Immunology
PROC: HZ2ZZZZ Detoxification Services for Substance Abuse Treatment (ICD-10-PCS; principal; 2020-10-09)
DX: F10.230 Alcohol dependence with withdrawal, uncomplicated (principal); F11.10 Opioid abuse, uncomplicated; F14.20 Cocaine dependence, uncomplicated; F12.20 Cannabis dependence, uncomplicated; F17.210 Nicotine dependence, cigarettes, uncomplicated; J45.20 Mild intermittent asthma, uncomplicated; R74.01 Elevation of levels of liver transaminase levels; R74.8 Abnormal levels of other serum enzymes; R63.4 Abnormal weight loss; Z68.23 Body mass index [BMI] 23.0-23.9, adult; Z88.0 Allergy status to penicillin; Z91.013 Allergy to seafood
CPT/HCPCS: 36415; 80053; 85027; 86780; C9803; U0003; U0005

== ENCOUNTER 2020-12-08 12:38 | Inpatient (IN) | payer OTHER ==
[2020-12-08 13:33] VITALS: BMI 23.1
[2020-12-08] MEDS ORDERED: MAGNESIUM HYDROX 2400MG/30ML ORAL SUSPENSION 30 ML CUP PO PRN (17:34)
[2020-12-08] MEDS ORDERED: diazePAM 5 MG TABLET PO PRN (17:34)
[2020-12-08] MEDS ORDERED: MENTHOL/PHENOL 1 EACH UD MM PRN (17:34)
[2020-12-08] MEDS ORDERED: MAGNESIUM CITRATE 300 ML BOTTLE PO PRN (17:34)
[2020-12-08] MEDS ORDERED: NICOTINE POLACRILEX 2 MG GUM BUC PRN (17:34)
[2020-12-08] MEDS ORDERED: MAG HYDROX/AL HYDROX/SIMETH 30 ML UNIT-DOSE CUP PO PRN (17:34)
[2020-12-08] MEDS ORDERED: IBUPROFEN 400 MG TABLET (FP) PO PRN (17:34)
[2020-12-08] MEDS ORDERED: NICOTINE 10 MG CARTRIDGE (INHALER) IH PRN (17:34)
[2020-12-08] MEDS ORDERED: METHOCARBAMOL 500 MG TABLET PO PRN (17:34)
[2020-12-08] MEDS ORDERED: ACETAMINOPHEN 325 MG TABLET (FP) PO PRN ×2 (17:34)
[2020-12-08] MEDS ORDERED: BISMUTH SUBSALICYLATE 524 MG/30 ML PO PRN (17:34)
[2020-12-08] MEDS ORDERED: NALOXONE (NARCAN) HCL 4 MG/0.1 ML SPRAY NS PRN (17:34)
[2020-12-08] MEDS ORDERED: ALBUTEROL SO4 HFA INHALER IH PRN (17:36)
[2020-12-08] MEDS: MELATONIN 5 MG TABLETS PO SCH (22:20)
[2020-12-08] MEDS: THIAMINE HCL 100 MG TABLET (FP) PO SCH (22:20)
[2020-12-08] MEDS: diazePAM 5 MG TABLET PO SCH (22:21)
[2020-12-09] MEDS: diazePAM 5 MG TABLET PO SCH ×4 (05:27→22:29)
[2020-12-09] MEDS: PRENATAL VITAMINS W/ FOLIC ACID TABLET (FP) PO SCH (10:31)
[2020-12-09 11:26] LABS: HEMATOCRIT 44.5 % (35.4-49); HEMOGLOBIN 15.4 GM/dL (11.7-16.9); MCH 34.2 pg (25.7-33.7); MCHC 34.7 g/dl (32.0-35.9); MEAN CELL VOLUME 98.4 fl (80-96); PLATELET COUNT 369 10^3/uL (134-434); RBC 4.52 M/mm3 (4.00-5.60); RDW 12.7 % (11.9-15.9); WHITE BLOOD COUNT 8.2 K/mm3 (4.0-10.0)
[2020-12-09 12:00] LABS: BLOOD UREA NITROGEN 11.7 mg/dL (7-18); CALCIUM 8.8 mg/dL (8.5-10.1)
[2020-12-09 12:03] LABS: CREATININE 0.8 mg/dL (0.55-1.3)
[2020-12-09 12:04] LABS: BILIRUBIN,TOTAL 0.2 mg/dL (0.2-1); TOT PROT 6.2 g/dl (6.4-8.2)
[2020-12-09 13:58] LABS: HIV INTERPRETATION NEGATIVE (NEGATIVE)
[2020-12-09] MEDS: MELATONIN 5 MG TABLETS PO SCH (22:29)
[2020-12-09] MEDS: THIAMINE HCL 100 MG TABLET (FP) PO SCH (22:29)
[2020-12-10] MEDS: diazePAM 5 MG TABLET PO SCH ×3 (05:48→22:13)
[2020-12-10] MEDS: PRENATAL VITAMINS W/ FOLIC ACID TABLET (FP) PO SCH (10:15)
[2020-12-10] MEDS: MELATONIN 5 MG TABLETS PO SCH (22:14)
[2020-12-10] MEDS: THIAMINE HCL 100 MG TABLET (FP) PO SCH (22:14)
[2020-12-11] MEDS: diazePAM 5 MG TABLET PO SCH ×2 (05:26→18:03)
[2020-12-11] MEDS: PRENATAL VITAMINS W/ FOLIC ACID TABLET (FP) PO SCH (10:16)
[2020-12-11] MEDS: MELATONIN 5 MG TABLETS PO SCH (22:14)
[2020-12-11] MEDS: THIAMINE HCL 100 MG TABLET (FP) PO SCH (22:14)
[2020-12-12] MEDS ORDERED: diazePAM 5 MG TABLET PO ONE (06:00)
[2020-12-12 06:49] VITALS: BP 113/64; PULSE 63; TEMP 96
== END 2020-12-12 09:26 | disposition home or self-care (01) | DRG 774 ==
LOC: YASAS 12:38 → Y6N 18:21
PROVIDERS: ADMIT Allergy & Immunology; ATTEND Allergy & Immunology
PROC: HZ2ZZZZ Detoxification Services for Substance Abuse Treatment (ICD-10-PCS; principal; 2020-12-08)
DX: F10.230 Alcohol dependence with withdrawal, uncomplicated (principal); F14.20 Cocaine dependence, uncomplicated; F12.20 Cannabis dependence, uncomplicated; F17.210 Nicotine dependence, cigarettes, uncomplicated; F19.282 Other psychoactive substance dependence with psychoactive substance-induced sleep disorder; J45.20 Mild intermittent asthma, uncomplicated; Z56.0 Unemployment, unspecified; Z59.0 Homelessness; Z88.0 Allergy status to penicillin; Z91.013 Allergy to seafood
CPT/HCPCS: 36415; 80053; 85027; 86780; 87389; C9803; U0003; U0005

== ENCOUNTER 2021-10-29 09:45 | Inpatient (IN) | payer OTHER ==
[2021-10-29] MEDS ORDERED: BISMUTH SUBSALICYLATE 262 MG/15 ML BTL PO PRN (11:03)
[2021-10-29] MEDS ORDERED: MAG HYDROX/AL HYDROX/SIMETH 30 ML UNIT-DOSE CUP PO PRN (11:03)
[2021-10-29] MEDS ORDERED: NICOTINE 10 MG CARTRIDGE (INHALER) IH PRN (11:03)
[2021-10-29] MEDS ORDERED: BENZOCAINE/MENTHOL (CHLORASEPTIC ) LOZENGE MM PRN (11:03)
[2021-10-29] MEDS ORDERED: MAGNESIUM HYDROX 2400MG/30ML ORAL SUSPENSION 30 ML CUP PO PRN (11:03)
[2021-10-29] MEDS ORDERED: DICYCLOMINE HCL 10 MG CAPSULE PO PRN (11:03)
[2021-10-29] MEDS ORDERED: ONDANSETRON *ODT* 4 MG TABLET SL PRN (11:03)
[2021-10-29] MEDS ORDERED: IBUPROFEN 400 MG TABLET (FP) PO PRN (11:03)
[2021-10-29] MEDS ORDERED: ACETAMINOPHEN 325 MG TABLET (FP) PO PRN ×2 (11:03)
[2021-10-29] MEDS ORDERED: METHOCARBAMOL 500 MG TABLET PO PRN (11:03)
[2021-10-29] MEDS ORDERED: IBUPROFEN 600 MG TABLET (FP) PO PRN (11:03)
[2021-10-29] MEDS ORDERED: LOPERAMIDE HCL 2 MG CAPSULE PO PRN (11:03)
[2021-10-29] MEDS ORDERED: diazePAM 5 MG TABLET PO PRN (11:03)
[2021-10-29] MEDS ORDERED: MAGNESIUM CITRATE 300 ML BOTTLE PO PRN (11:03)
[2021-10-29] MEDS ORDERED: ALBUTEROL SO4 HFA INHALER IH PRN (11:05)
[2021-10-29 11:55] VITALS: BMI 23.1
[2021-10-29] MEDS: PRENATAL VITAMINS W/ FOLIC ACID TABLET (FP) PO SCH (13:44)
[2021-10-29] MEDS: diazePAM 5 MG TABLET PO SCH ×3 (13:44→23:50)
[2021-10-29] MEDS: hydrOXYzine PAMOATE 25 MG CAPSULE (FP) PO SCH ×3 (13:48→23:50)
[2021-10-29 15:04] LABS: HEMATOCRIT 46.9 % (35.4-49); HEMOGLOBIN 15.7 GM/dL (11.7-16.9); MCHC 33.5 g/dl (32.0-35.9); MEAN CELL VOLUME 95.6 fl (80-96); PLATELET COUNT 282 10^3/uL (134-434); RDW 13.6 % (11.9-15.9); WHITE BLOOD COUNT 4.7 K/mm3 (4.0-10.0)
[2021-10-29 15:26] LABS: ALBUMIN 3.6 g/dl (3.4-5.0); BLOOD UREA NITROGEN 9.2 mg/dL (7-18); CALCIUM 9.7 mg/dL (8.5-10.1)
[2021-10-29 15:28] LABS: TOT PROT 7.1 g/dl (6.4-8.2)
[2021-10-29 15:30] LABS: BILIRUBIN,TOTAL 0.6 mg/dL (0.2-1)
[2021-10-29] MEDS: MELATONIN 5 MG TABLETS PO SCH (23:49)
[2021-10-29] MEDS: THIAMINE HCL 100 MG TABLET (FP) PO SCH (23:50)
[2021-10-30] MEDS: diazePAM 5 MG TABLET PO SCH ×4 (06:43→23:02)
[2021-10-30] MEDS: hydrOXYzine PAMOATE 25 MG CAPSULE (FP) PO SCH ×5 (06:43→23:02)
[2021-10-30] MEDS: PRENATAL VITAMINS W/ FOLIC ACID TABLET (FP) PO SCH (10:57)
[2021-10-30] MEDS: MELATONIN 5 MG TABLETS PO SCH (23:02)
[2021-10-30] MEDS: THIAMINE HCL 100 MG TABLET (FP) PO SCH (23:02)
[2021-10-31] MEDS: diazePAM 5 MG TABLET PO SCH ×3 (07:01→21:52)
[2021-10-31] MEDS: hydrOXYzine PAMOATE 25 MG CAPSULE (FP) PO SCH ×5 (07:01→21:52)
[2021-10-31] MEDS: PRENATAL VITAMINS W/ FOLIC ACID TABLET (FP) PO SCH (11:21)
[2021-10-31] MEDS: MELATONIN 5 MG TABLETS PO SCH (21:51)
[2021-10-31] MEDS: THIAMINE HCL 100 MG TABLET (FP) PO SCH (21:52)
[2021-11-01] MEDS ORDERED: diazePAM 5 MG TABLET PO SCH (06:00)
[2021-11-01] MEDS: hydrOXYzine PAMOATE 25 MG CAPSULE (FP) PO SCH ×3 (06:57→14:55)
[2021-11-01 09:20] VITALS: BP 137/76
[2021-11-01] MEDS: PRENATAL VITAMINS W/ FOLIC ACID TABLET (FP) PO SCH (11:38)
[2021-11-01 13:26] VITALS: PULSE 105; RESP 142; TEMP 97.7
[2021-11-02] MEDS ORDERED: diazePAM 5 MG TABLET PO ONE (06:00)
== END 2021-11-01 16:31 | disposition left against medical advice (07) | DRG 770 ==
LOC: YASAS 09:45 → Y3N 11:34
PROVIDERS: ADMIT Allergy & Immunology; ATTEND Surgery
PROC: HZ2ZZZZ Detoxification Services for Substance Abuse Treatment (ICD-10-PCS; principal; 2021-10-29)
DX: F10.230 Alcohol dependence with withdrawal, uncomplicated (principal); F14.20 Cocaine dependence, uncomplicated; F12.20 Cannabis dependence, uncomplicated; F17.213 Nicotine dependence, cigarettes, with withdrawal; F19.282 Other psychoactive substance dependence with psychoactive substance-induced sleep disorder; F19.24 Other psychoactive substance dependence with psychoactive substance-induced mood disorder; F32.A Depression, unspecified; U07.1 COVID-19; Z28.310 Unvaccinated for COVID-19; Z88.0 Allergy status to penicillin; Z91.013 Allergy to seafood
CPT/HCPCS: 36415; 80053; 85027; 86780; 87811; C9803-CS; U0003; U0005